=== PATIENT | female | born 1980 | race Caucasian/White ===

== ENCOUNTER 2021-11-07 15:20 | Emergency (ER) | payer OTHER, SELFPAY | END 2021-11-07 16:56 | disposition left against medical advice (07) | LOC: ANHED 16:24 | PROVIDERS: PCP Physician Assistant | DX: Z53.21 Procedure and treatment not carried out due to patient leaving prior to being seen by health care provider (principal) | CPT/HCPCS: 99199 ==

== ENCOUNTER 2022-10-02 10:59 | Emergency (ER) | payer OTHER, SELFPAY ==
--- NOTE | ~2022-10-02 | XR_ITS ---
EXAMINATION: XR sacrum coccyx min 2V DATE: 10/02/2022 12:56 INDICATION: Sacrococcygeal pain post fall down stairs TECHNIQUE: AP, angled AP and lateral views of the sacrum and coccyx were obtained. COMPARISON: None. FINDINGS: There is a fracture across the caudal-most sacral segment with approximately 3 mm anterosup erior displacement of the distal fragment and attached coccyx. No other fractures identified. Mild bi lateral sacroiliac osteoarthritis. Bilateral hip joint spaces are normal. Phlebolith in the left ismael pelvis. IMPRESSION: 1. Mildly displaced fracture across S5. Reviewed, dictated and finalized at location A.
[2022-10-02 11:02] VITALS: BP 123/74; PULSE 95; RESP 18; TEMP 36.7; O2SAT 100
--- NOTE | 2022-10-02 13:26 | ED.GENADULT ---
HPI - General Adult General Chief complaint: Fall Stated complaint: fell on steps, tailbone pain/shoulder blade pain Time Seen by Provider: 10/02/22 11:58 History of Present Illness HPI narrative: Patient is a 42-year-old female who presents ER with pain to her buttock. She slipped on the steps and fell directly down onto her buttock. Sudden onset pain. She has been able to walk. She then felt like she was anxious and had a panic attack and became tingling in her toes and fingers. She has no numbness or tingling at this time. No functional weakness of the legs. She has no saddle anesthesia. She is ambulatory without difficulty. She reports her pain has significantly improved since being at the ER. Most of her pain is over the folds of the buttock. She has not identified any swelling or bleeding. Related Data Home Medications Medication Instructions Recorded Confirmed acetaminophen 325 mg capsule 325 mg PO Q6H PRN 03/04/21 (Tylenol) Allergies Allergy/AdvReac Type Severity Reaction Status Date / Time adhesive Allergy Unknown unknown Verified 10/02/22 12:29 Review of Systems Review of Systems: All systems reviewed & are unremarkable except as noted in HPI and below Musculoskeletal: Musculoskeletal: Denies back pain, Denies arthralgias and Denies joint swelling Comments: Tailbone pain Integumentary/Breasts: Skin/Breast: Denies erythema and Denies rash Neurologic: Denies focal weakness and Denies numbness PMFSH Past Medical History Medical History (Updated 10/02/22 @ 13:33 by Kishore Schmidt MD) Arthritis Family History Family History (Updated 03/04/21 @ 09:39 by Margaux Martinez) Grandparent Diabetes mellitus Mother Family history of hypercholesterolemia Carcinoma of colon Hypertension Depression Anxiety Heart disease Father Hypertension Cerebrovascular accident Sibling Alcoholism Hypertension Depression Anxiety Heart disease Other Depression Anxiety Social History Social History Smoking status: Current every day smoker Alcohol intake: never Substance use type: marijuana Exam Narrative: GENERAL: Well-appearing, well-nourished, and in no acute distress. HEAD: Normocephalic, atraumatic. CHEST: Clear to auscultation. No respiratory distress. HEART: Regular rate and rhythm. Normal peripheral pulses. BACK: Tender to palpation over the low sacrum in the folds of the buttock without bruising or hematoma. Otherwise unremarkable. EXTREMITIES: Normal range of motion. No edema. Ambulatory without difficulty. SKIN: Warm, dry, no rash. NEURO: Sensation intact in lower extremities. Alert and oriented x3. PSYCH: Normal mood and affect. Course Course Emergency Course: Patient resting comfortably. Informed of results. Discussed using a inflatable doughnut for comfort when sitting. Will prescribe pain medication for home. Vital Signs Vital signs: Vital Signs Temperature 98.0 F 10/02/22 11:02 Pulse Rate 95 10/02/22 11:02 Respiratory Rate 18 10/02/22 11:02 Blood Pressure 123/74 10/02/22 11:02 Pulse Oximetry 100 10/02/22 11:02 Oxygen Delivery Room Air 10/02/22 11:02 Temperature 98.0 F 10/02/22 11:02 Pulse Rate 95 10/02/22 11:02 Respiratory Rate 18 10/02/22 11:02 Blood Pressure 123/74 10/02/22 11:02 Pulse Oximetry 100 10/02/22 11:02 Oxygen Delivery Room Air 10/02/22 11:02 Medical Decision Making Vital Signs Vital Signs: Vital Signs Temperature 98.0 F 10/02/22 11:02 Pulse Rate 95 10/02/22 11:02 Respiratory Rate 18 10/02/22 11:02 Blood Pressure 123/74 10/02/22 11:02 Pulse Oximetry 100 10/02/22 11:02 Oxygen Delivery Room Air 10/02/22 11:02 Temperature 98.0 F 10/02/22 11:02 Pulse Rate 95 10/02/22 11:02 Respiratory Rate 18 10/02/22 11:02 Blood Pressure 123/74 10/02/22 11:02 Pulse Oximetry 100 10/02/22 11:02 Oxygen Delivery Room Air 10/02/22 11:02 Imagin
== END 2022-10-02 13:59 | disposition home or self-care (01) ==
PROVIDERS: Emergency Provider Emergency Medicine; PCP Physician Assistant
DX: S32.2XXA Fracture of coccyx, initial encounter for closed fracture (principal); M19.90 Unspecified osteoarthritis, unspecified site; W10.9XXA Fall (on) (from) unspecified stairs and steps, initial encounter
CPT/HCPCS: 72220; 99283

== ENCOUNTER 2023-06-05 15:29 | Emergency (ER) | payer OTHER, SELFPAY ==
[2023-06-05 15:37] VITALS: BP 118/81; PULSE 90; RESP 18; TEMP 37.3; O2SAT 98
--- NOTE | 2023-06-05 15:51 | ED.URI ---
HPI - URI/Sore Throat General Chief Complaint: Upper Respiratory Infection Stated Complaint: Sinus Time Seen by Provider: 06/05/23 15:51 Source: patient, RN notes reviewed and old records reviewed Mode of arrival: ambulatory Limitations: no limitations History of Present Illness HPI Narrative: 43-year-old female presents to the [facility] with complaints ear congestion, sinus congestion cough Has had symptoms on and off since end of April, returned last or Sunday, 4-5 days Has taken DayQuil and NyQuil Onset (ago): day(s) (4-5) Related Data Home Medications Medication Instructions Recorded Confirmed acetaminophen 325 mg capsule 325 mg PO Q6H PRN 03/04/21 (Tylenol) escitalopram oxalate 10 mg tablet mg 06/05/23 Allergies Allergy/AdvReac Type Severity Reaction Status Date / Time adhesive Allergy Unknown unknown Verified 06/05/23 15:36 Review of Systems Review of Systems: All systems reviewed & are unremarkable except as noted in HPI and below Constitutional: Constitutional: Reports no additional constitutional complaints Eyes: Eyes: Reports no additional eye complaints ENT: Reports as per HPI Cardiovascular: Cardiovascular: Reports no additional cardiovascular complaints, Denies chest pain and Denies dyspnea Respiratory: Respiratory: Reports no additional respiratory complaints, Denies chest congestion, Denies cough and Denies dyspnea Gastrointestinal: Gastrointestinal: Reports no additional gastrointestinal complaints, Denies abdominal pain, Denies nausea and Denies vomiting Musculoskeletal: Musculoskeletal: Reports no additional musculoskeletal complaints Integumentary/Breasts: Skin/Breast: Reports system reviewed and no additional complaints, except as docu Neurologic: Reports system reviewed and no additional complaints, except as documented Psychiatric: Psychiatric: Reports no additional psychiatric complaints Allergic/Immunologic: Allergic/Immunologic: Reports no additional allergic/immunologic complaints [facility] Past Medical History Medical History Arthritis Family History Family History Grandparent Diabetes mellitus Mother Family history of hypercholesterolemia Carcinoma of colon Hypertension Depression Anxiety Heart disease Father Hypertension Cerebrovascular accident Sibling Alcoholism Hypertension Depression Anxiety Heart disease Other Depression Anxiety Social History Social History Smoking status: Current every day smoker Alcohol intake: never Substance use type: marijuana Comments At the time of my signature, I reviewed and agree with the nursing past medical, surgical, social, and family history. There is no relevant family history pertinent to the patient complaint. Exam Const: General: cooperative, healthy appearing, comfortable, no acute distress, well developed, alert and well nourished Nutritional Appearance: well nourished Orientation/consciousness: patient oriented x3 Limitations: no limitations HENMT: Head: normal to inspection Ears: hearing grossly normal bilaterally, external ears normal, EAC's normal, mastoids normal, no periauricular adenopathy and TM abnormal bulging on the left and erythematous bilateral Face/Nose/Sinus: Normal external nose present, Normal nares present, Normal nasal mucous membranes and turbinates present, Nasal discharge present clear bilateral, normal facial exam and face symmetric Face and sinus: normal facial exam and face symmetric Mouth: Yes Normal oral and palatal mucosa present, Yes lip normal and Yes moist mucous membranes Throat: posterior oropharynx normal and uvula midline Eyes: General: appearance normal, both eyes and all related structures Alignment and Position: alignment normal Periorbital: periorbital findings normal Pup
== END 2023-06-05 16:15 | disposition home or self-care (01) ==
PROVIDERS: Emergency Provider Nurse Practitioner; PCP Physician Assistant
DX: H66.93 Otitis media, unspecified, bilateral (principal); J40 Bronchitis, not specified as acute or chronic; F17.200 Nicotine dependence, unspecified, uncomplicated
CPT/HCPCS: 99213; G0463

== ENCOUNTER 2025-01-10 10:12 | Emergency (ER) | payer OTHER, SELFPAY ==
--- NOTE | 2025-01-10 10:29 | ED.URI ---
HPI - URI/Sore Throat General Chief Complaint: Upper Respiratory Infection Stated Complaint: short of breath Time Seen by Provider: 01/10/25 11:20 Source: patient Mode of arrival: ambulatory Limitations: no limitations History of Present Illness HPI Narrative: Elma is a 44-year-old female patient presenting to the clinic today with complaints of possible GERD. She reports she has been belching a lot, nausea, and having midepigastric abdominal discomfort with burning sensation in her esophagus. Feels that she may be having some esophageal spasms. At times she can not catch her breath due to the discomfort. She is anxious and tearful. No history of hiatal hernia or GERD in the past. Has an appointment to see a primary care doctor on January 20. Patient appears anxious. She denies any fevers, chills, body aches. Denies any recent weight loss. No hematemesis or blood in her stool. She smokes THC. Started an old Rx of pantoprazole. Family history of colon cancer. Related Data Home Medications ?Medication ?Instructions ?Recorded ?Confirmed ?Last Taken ?Type acetaminophen 325 mg capsule 325 mg PO Q6H PRN 03/04/21 Unknown History (Tylenol) escitalopram oxalate 10 mg tablet mg 06/05/23 Unknown History Allergies Allergy/AdvReac Type Severity Reaction Status Date / Time adhesive Allergy Unknown unknown Verified 01/10/25 11:14 Review of Systems Review of Systems: Pertinent positives per HPI. Patient denies any fever, chills, rash, headache, visual changes, dizziness, cough, chest pain, palpitations, vomiting, diarrhea, constipation, abdominal pain, or any urinary issues. PMF Past Medical History Medical History Arthritis Family History Family History Grandparent Diabetes mellitus Mother Family history of hypercholesterolemia Carcinoma of colon Hypertension Depression Anxiety Heart disease Father Hypertension Cerebrovascular accident Sibling Alcoholism Hypertension Depression Anxiety Heart disease Other Depression Anxiety Social History Social History Smoking status: Current every day smoker Alcohol intake: never Substance use type: marijuana Comments At the time of my signature, I reviewed and agree with the nursing past medical, surgical, social, and family history. There is no relevant family history pertinent to the patient complaint. Exam Narrative: General: Well-developed, obese, in no apparent distress Head: Normocephalic, atraumatic Eyes: Pupils equally round and reactive to light bilaterally, EOM intact, sclera and conjunctive clear, no discharge, lids normal Ears: TMs intact and clear, ear canals clear, no drainage, grossly hearing normal. Nose: Nares patent, no discharge, no inflammation, no sinus tenderness. Mouth: Oral pharynx without lesions or masses, good dentition, MMM. Neck: Supple, trachea midline, no enlargement of anterior or posterior cervical nodes, no thyroid masses or goiter palpable. Cardio: Regular rate and rhythm, s1 and s2 normal, no murmur appreciated. Resp: Clear to auscultation bilaterally, no rhonchi, rales, wheezing or rubs Abdomen: Soft, pliable, bowel sounds present in all quadrants, mid epigastric tender to palpation, no organomegly, no CVAT tenderness. Course Course Emergency Course: Portions of this record may have been created with voice recognition software. Level of Care: Express Care Visit Vital Signs Vital signs: Vital Signs Temperature 36.4 C 01/10/25 11:16 Pulse Rate 86 01/10/25 11:16 Respiratory Rate 18 01/10/25 11:16 Blood Pressure 134/84 01/10/25 11:16 Pulse Oximetry 96 01/10/25 11:16 Oxygen Delivery Room Air 01/10/25 11:16 Temperature 36.4 C 01/10/25 11:16 Pulse Rate 86 01/10/25 11:16 Respiratory Rate 18 01/10/25 11:16 Blood Pressure 134/84 01/10/25 11:16 Pulse Oximetry 96 01/10/25 11:16 Oxygen Delivery Room Air 01/10/25 11:16 Vital signs reviewed MDM - URI/Sore Throat MDM Narrative Medical decision making narrative: At the time of visit patient is resting comfortably on the exam table. Patient appears to be nontoxic. Plan: I suspect patient has GERD. Prescription for Carafate and pantoprazole was sent to the pharmacy. Referral to GI specialist was given. Supportive measures were discussed with the patient and they voiced understanding discharge instructions and agrees to treatment plan. Return precautions reviewed Differential Diagnosis Differential diagnosis: Likely other (GERD, hiatal hernia, postnasal drip, anxiety, cholecystitis, pancreatitis, Vasquez's esophagus, H pylori) Discharge Plan Discharge Clinical Impression: GERD (gastroesophageal reflux disease) Qualifiers: Esophagitis presence: esophagitis presence not specified Qualified Code(s): K21.9 - Gastro-esophageal reflux disease without esophagitis Patient Disposition: Home Condition: Stable Instructions: Antibiotic Form, Diet for Stomach Ulcers and Gastritis (ED), GERD (Gastroesophageal Reflux Disease) (ED) Additional Instructions: Increase fluids and stay well hydrated Avoid eating spicy or fatty foods, chocolate, or drinking caffeine. Avoid foods that cause you to feel bloated. Stop smoking Lose weight/exercise Stay upright for at least 30 minutes after eating. May use tums for immediate relief Take medications only as prescribed-pantoprazole and Carafate Follow up with your PCP in 3-5 days if symptoms persist. Patient Language: Divehi Prescriptions: New pantoprazole 40 mg tablet,delayed release (DR/EC) 40 mg PO HS 28 Days Qty: 28 0RF sucralfate [Carafate] 1 gram tablet 1 g PO ACHS 30 Days Qty: 120 0RF No Action escitalopram oxalate 10 mg tablet albuterol sulfate 90 mcg/actuation HFA aerosol inhaler 2 puff inhalation QID PRN (Reason: shortness of breath or wheezing) Qty: 6.7 0RF amoxicillin-pot clavulanate 875-125 mg tablet 1 tablet PO Q12H Qty: 20 0RF (DME) Aerochamber MV Spacer See Rx Instructions .Route Qty: 1 0RF Rx Instructions: As directed prednisone 20 mg tablet See Rx Instructions .Route .COMPLEX Qty: 9 0RF Rx Instructions: Take 40 mg daily for 3 days, 20 mg daily for 3 days acetaminophen [Tylenol] 325 mg capsule 325 mg PO Q6H PRN Follow-up/Referrals: Jose Zhang MD [Physician] - 3 Days (gerd) Paradise Torres APRN [Primary Care Provider] - Time of Disposition: 11:22 Quality NIHSS Nursing Documentation ED NIHSS nursing documentation: reviewed/agree
[2025-01-10 11:16] VITALS: BP 134/84; PULSE 86; RESP 18; TEMP 36.4; O2SAT 96
== END 2025-01-10 11:35 | disposition home or self-care (01) ==
PROVIDERS: Emergency Provider Nurse Practitioner Family; PCP Nurse Practitioner Family
DX: K21.9 Gastro-esophageal reflux disease without esophagitis (principal); F17.200 Nicotine dependence, unspecified, uncomplicated; F12.90 Cannabis use, unspecified, uncomplicated; M19.90 Unspecified osteoarthritis, unspecified site
CPT/HCPCS: 99213; G0463

== ENCOUNTER 2025-02-09 00:07 | Day surgery (SDC) | payer OTHER, SELFPAY ==
[2025-02-04 13:05] VITALS: BMI 31.6
--- OUTSIDE RECORDS SUMMARY | 2025-02-09 00:10 | XMS_ITS | Continuity of Care Document ---
Author Organization [facility] Address [address] [place] [address] Phone Care Team Providers Care Acute Specialist Name Role Phone Unavailable Unavailable Unavailable Advance Directives Directive Yes / No Effective Date File Name No Information Encounters Encounter Description Practice Location Reason(s) For Visit Diagnoses Date Provider Providers Copied on Encounter [facility], [address] [facility], [place], [place], [id number], tel:[phone] [facility] No Information No Information Referring Provider: CARO BRADLEY, [address] [place] [address], [id number]. tel:[phone] Family History Family Member Type Diagnosis Age At Onset No Information Payers Payer name Insurance type Covered alliance party ID Authoriza tion(s) No Information Social History Type Description Quantity Date Captured Comments Sex Female Smoking Status No Information Chief Complaint And Reason For Visit No Information History Of Present Illness Encounter Date Complaint History Of Prese nt Illness No Information Instructions Date Instruction Additional Infor mation No Information Assessments Type Assessment Date No Information
[2025-02-09 10:23] VITALS: BP 132/84; PULSE 101; RESP 20; TEMP 36.8; O2SAT 98; BMI 30.9
[2025-02-09 10:26] LABS: BEDSIDEPREGUCG Negative (Negative)
--- NOTE | 2025-02-09 10:30 | WPDANESEPPF ---
Anes - Initial Pre Proc Eval Procedure: Operation Date: 02/09/25 11:30 Proposed Procedures p Diagnostic Colonoscopy - Jose Zhang MD Date/Time: 02/09/25 10:30 Surgeon: Jose Zhang MD Pre Op Diagnosis: Hemorrhage of anus and rectum Patient Data Age: 44 Gender: F Height: 1.65 m Weight: 84.3 kg Last Vital Signs Temp 36.8 C 02/09/25 10:23 Pulse 101 H 02/09/25 10:23 Resp 20 02/09/25 10:23 BP 132/84 02/09/25 10:23 Pulse Ox 98 02/09/25 10:23 O2 Del Method Room Air 02/09/25 10:23 Allergies Allergy/AdvReac Type Severity Reaction Status Date / Time adhesive Allergy Unknown unknown Verified 02/09/25 10:21 Home Medications ?Medication ?Instructions ?Recorded ?Confirmed ?Type inhalational spacing device #1 ea 06/05/23 01/20/25 Rx (Aerochamber MV spacer) acetaminophen 325 mg tablet 250 mg PO .PRN PRN fever or pain 01/20/25 02/04/25 History (Tylenol) sucralfate 1 gram tablet 1 g PO QID 01/20/25 01/20/25 History buspirone 5 mg tablet 5 mg PO BID #60 tabs 01/29/25 02/09/25 Rx escitalopram oxalate 10 mg tablet 10 mg PO DAILY #30 tabs 01/29/25 02/09/25 Rx (Lexapro) pantoprazole 40 mg tablet,delayed 40 mg PO HS #30 tabs 02/04/25 02/09/25 Rx release Laboratory Tests 02/09/25 10:23 POC Urine HCG, Qual Negative (Negative) Patient hx anesthesia problems: none Family hx anesthesia problems: none Results Review: All pre-operative results and documents have been reviewed as part of the pre-operative evaluation. FORMERLY [facility], [facility] Past Medical History Medical History Arthritis Family History Family History Grandparent Diabetes mellitus Mother Family history of hypercholesterolemia Carcinoma of colon Hypertension Depression Anxiety Heart disease Father Hypertension Cerebrovascular accident Sibling Alcoholism Hypertension Depression Anxiety Heart disease Sibling Anxiety Depression Grandparent Carcinoma of colon Heart disease Social History Social History (Updated 01/20/25 @ 14:49 by Shauna Hidalgo [facility]) Smoking packs per day: 1 Smoking cigarettes per day: 20.0 Years smoked: 20 Smoking pack-years: 20.00 Smoking status: Former smoker Alcohol intake: never Substance use: current Substance use type: marijuana Living arrangements: with family Spiritual care concerns: No Anes - Eval Final PreProcedure Day of Procedure 02/09/25 10:30 Patient weight: overweight Heart: regular rate and rhythm Lungs: decreased breath sounds Airway: Mallampati scale class II Neurological: alert and oriented Last oral intake: >/= 8 hours ASA classification: III Emergent: no Anesthetic plan: proceed Anesthesia type and monitoring: general GIVS and standard monitoring Results Review: All pre-operative results and documents have been reviewed as part of the pre-operative evaluation. Informed Consent: The patient's anesthetic plan and its attendant risks and benefits were discussed with the patient/family/POA. Questions were solicited and answers provided to the satisfaction of the patient/family/POA.
[2025-02-09] MEDS: LACTATED RINGERS 1,000 ML 150 ML IV CONT (10:34)
--- NOTE | 2025-02-09 11:53 | WPDHPUPDATE1 ---
History and Physical Update Update Date/Time: 02/09/25 11:53 History and Physical has been reviewed, including an updated exam of the patient. There are NO changes in the patient's condition. Risks, benefits, and alternatives have been discussed and questions answered. Patient agrees to proceed with procedure.
[2025-02-09 12:32] VITALS: BP 120/80; PULSE 72; RESP 25; O2SAT 100
--- NOTE | 2025-02-09 12:32 | S_PTH ---
PATIENT: Elma Colunga LOC: [facility]UNA Vargas#:[id number] AGE/SX: 44/F ROOM: RE02/09/[address]: Jose Zhang MD : 1980 BED: DIS: 02/09/2025 SPEC #: [id number] RECD: 02/09/25 13:54 STATUS: BLESSING REEwa #: [id number] REINIER: 02/09/25 12:[address]: Jose Zhang DEPT: [facility] Surgical RECD BY: Leora Lovell ENTERED: 02/09/25 13:55 SP TYPE: Surgical OTHR DR: Phylicia Ivan DO Tissues: A - Colon Polypectomy B - Colon Polypectomy Procedures: Hematoxylin and Eosin Stain Gross and Microscopic Level 4 MLH1 MSH2 MSH6 PMS2
[2025-02-09 12:42] VITALS: BP 105/61; PULSE 77; RESP 19; O2SAT 100
[2025-02-09 12:52] VITALS: BP 147/67; PULSE 75; RESP 23; O2SAT 100
== END 2025-02-09 13:06 | disposition home or self-care (01) ==
PROVIDERS: Anesthesiology; PCP Family Medicine; Referring Provider Nurse Practitioner; Visit Provider Internal Medicine Gastroenterology
PROC: 0DJD8ZZ Inspection of Lower Intestinal Tract, Via Natural or Artificial Opening Endoscopic (ICD-10-PCS; CPT 45378; principal; 2025-02-09 11:30)
DX: C18.4 Malignant neoplasm of transverse colon (principal); D12.2 Benign neoplasm of ascending colon; K21.9 Gastro-esophageal reflux disease without esophagitis; K64.8 Other hemorrhoids; K64.4 Residual hemorrhoidal skin tags; F41.9 Anxiety disorder, unspecified; M19.90 Unspecified osteoarthritis, unspecified site; F12.90 Cannabis use, unspecified, uncomplicated; Z79.51 Long term (current) use of inhaled steroids; Z87.891 Personal history of nicotine dependence; Z80.0 Family history of malignant neoplasm of digestive organs; Z82.49 Family history of ischemic heart disease and other diseases of the circulatory system
CPT/HCPCS: 45390; 88305; 88342; J2003; J2704; J7120

== ENCOUNTER 2025-03-30 13:16 | Outpatient (CLI) | payer OTHER, SELFPAY ==
--- NOTE | 2025-03-30 14:09 | ECG_ITS ---
Test Date: 2025-03-30 14:26:00 Measurements Intervals Sharon Rate: 76 P: 60 FL: 185 QRS: 17 QRSD: 94 T: 37 QT: 369 QTc: 415 Interpretive Statements SINUS RHYTHM POOR R-WAVE PROGRESSION ABNORMAL ECG No previous ECG available for comparison Electronically Signed On 03-31-2025 07:59:20 CDT by Shakir Russo M.D.
[2025-03-30 14:39] LABS: Hematocrit 37.3 % (37.0-47.0); Hemoglobin 12.0 g/dL (12.0-15.0); Immature Granulocyte Percent A 0.1 % (0-0.5); Lymphocytes Absolute Auto 2.13 K/mm3 (0.9-3.2); Mean Corpuscular HGB Conc 32.2 g/dl (32-36); Mean Corpuscular Hemoglobin 26.9 pg (26-34); Mean Corpuscular Volume 83.6 fl (80-100); Nucleated Red Blood Cells Absolute Auto 0.000 K/mm3 (0.0-0.012); Nucleated Red Blood Cells Perc 0.0 % (0.0-0.2); Platelet Count Result 302 k/mm3 (150-375); Red Blood Count 4.46 M/mm3 (4.2-5.4); White Blood Count 8.0 K/mm3 (4.5-10.0)
[2025-03-30 14:52] LABS: Alanine Aminotransferase 13 U/L (6-35); Albumin Level 4.2 g/dL (3.5-5.1); Alkaline Phosphatase 61 U/L (38-126); Anion Gap 7 mmol/L (4-12); Aspartate Amino Transferase 21 U/L (14-36); Bilirubin,Total 0.3 mg/dL (0.2-1.3); Blood Urea Nitrogen 8 mg/dL (7-17); Calcium 8.9 mg/dL (8.4-10.2); Carbon Dioxide 24 mmol/L (22-30); Chloride 107 mmol/L (98-107); Estimated Glomerular Filt Rate > 60; Glucose 86 mg/dL (65-110); Potassium 3.2 mmol/L (3.4-5.0); Sodium 138 mmol/L (137-145); Total Protein 7.3 g/dL (6.3-8.2)
[2025-03-30 15:27] LABS: Carcinoembryonic Antigen 1.3 ng/mL (0.0-3.0)
--- OUTSIDE RECORDS SUMMARY | 2025-03-30 15:50 | XMS_ITS | Clinical Summary ---
Author Organization [facility] Address [address] [place] [id number] Phone Care Team Providers Care Digital Forensic Analyst Name Role Phone Unavailable Primary Care Provider Unavailabl e Social History Tobacco Use Types Packs/Day Years Used Date Smoking Tobacco: Never Assessed Comments Unknown Sex and Gender Information Value Date Recorded Sex Assigned at Not on file Legal Sex Female 12:11 PM CDT Gender Identity Not on file Sexual Orientation Not on file Plan of Treatment Health Maintenance Due Date Last Done Comments DTAP/TDAP/TD VACCINES (1 - Tdap) 1999 HEPATITIS B VACCINES (1 of 3 - 19+ 3-dose series) 02/1999 HPV/Cotest (21-29) 2001 HPV VACCINES (1 - 3-dose SCDM series) 2007 CERVICAL CANCER SCREENING 2010 HPV/Cotest (30-65) 2010 PAP SMEAR 2010 BREAST CANCER SCREENING 2020 INFLUENZA VACCINE (#1) 2025 Insurance [employer] HMO
--- OUTSIDE RECORDS SUMMARY | 2025-03-30 15:50 | XMS_ITS | Clinical Summary ---
Author Organization [facility] System Address [address] [place] [id number] Care Team Providers Care Chain Builder Name Role Phone Rob Cain Primary Care Provider + Allergies No known active allergies Medications escitalopram 10 MG tabletIndicatio ns:Anxiety Take 1 tablet (10 mg total) by mouth daily. Patient is due for appt , no further refills until seen in office or for a virtual visit 7 tablet 05/21/2020 Active Active Problems Problem Noted Date Diagnosed Date Anxiety 11/17/2018 Family History Medical History Relation Comments Hypertension Father Stroke Father Cancer Maternal Grandfather Bone Diabetes Maternal Grandfather Diabetes Maternal Grandmother Cancer Mother Colon Heart Disease Mother Relation Status Comments Father Maternal Grandfather Maternal Grandmother Mother Social History Tobacco Use Types Packs/Day Years Used Date Smoking Tobacco: Former Cigarettes 1 12 0 04/01/2006 - 04/01/2018 Smokeless Tobacco: Never Alcohol Use Standard Drinks/Week Comments Yes 0 (1 standard drink = 0.6 oz pur e alcohol) AUDIT-C Answer Date Recorded Frequency of Alcohol Consumption Monthly or less 11/14/2018 Average Number of Drinks Not on file 019 Frequency of Binge Drinking Not on file 08/2018 PHQ-2 Answer Date Recorded PHQ-2 Score 1 11/14/2018 Comments Unknown Sex and Gender Information Value Date Recorded Sex Assigned at Not on file Legal Sex Female 2:38 PM CDT Gender Identity Not on file Sexual Orientation Not on file Occupation Industry Job Start Date Job End Date Not on file Not on file Not on file Not on file Last Filed Vital Signs Vital Sign Reading Time Taken Comments Blood Pressure 129/67 11/14/2018 10:24 AM CDT Pulse 89 11/14/2018 10:24 AM CDT Temperature 36.4 C (97.5 F) 11/14/2018 10:24 AM CDT Respiratory Rate 16 11/14/2018 10:24 AM CDT Oxygen Saturation 98% 11/14/2018 10:24 AM CDT Inhaled Oxygen Concentration - - Weight 85.7 kg (189 lb) 11/14/2018 10:24 AM CDT Height 165.1 cm (5' 5) 11/14/2018 10:24 AM CDT Body Mass Index 31.45 11/14/2018 10:24 AM CDT Plan of Treatment Health Maintenance Due Date Last Done Comments Cervical Cancer Screening Pa p Smear (Age 30 to 64) Every 3 Years 1980 Annual Physical 1983 Hepatitis C 1998 DTaP, Tdap and Td Vaccines ( 1 - Tdap) 1999 Hepatitis B Vaccines (1 of 3 - 19+ 3-dose series) 1999 HPV Vaccines (1 - 3-dose SCD M series) 2007 Cervical Cancer Screening Pa p with HPV Testing (Age 30 to 64) Every 5 Years 2010 Cervical Cancer Screening with HPV 2010 Mammogram Screening 03/23/2023 03/23/2021 COVID-19 Vaccine (2023-2 5 season) 2025 Meningococcal B Vaccine Aged Out No l onger eligible based on patient's age to complete this topic Meningococcal Vaccine Aged Out No mark jc eligible based on patient's age to complete this topic Pneumococcal Vaccine: Pediat rics (0 to 5 Years) and At-Risk Patients (6 to 49 Years) Aged Out No longer eligi ble based on patient's age to complete this topic RSV Immunizations Under 20 Months Aged Out No longer eligible based on patient's age to complete this topic Procedures Procedure Name Priority Date/Time Associated Diagnosis Comments MG SCREENING W DENILSON SANDRA DIGI Routine 03/23/2021 2:17 PM CDT Encounter for screening mammogram for malignant neoplasm of breast from Last 3 Months or Most Recently Relevant to Health Maintenance Results * MG SCREENING W DENILSON SANDRA DIGI (03/23/2021 2:17 PM CDT) Anatomical Region Laterality Modality Breast Bilateral Mammography 03/24/2021 8:07 AM CDT Impressions 03/24/2021 8:09 AM CDT IMPRESSION: No suspicious mammographic findings. Recommendation: 1. Follow-up Mamm in 1 year, Bilateral Assessment: ACR BI-RADS 2 - BENIGN FINDING(S) Comments: A negative or benign mammography report should not delay follow-up or biopsy of a clinically significant finding or palpable abnormality. Regions of dense breast tissue may obscure findings on mammogram. Referred By: VANE MICHEL Interpreted By: Bryan Foreman MD, 03/24/2021 8:07 AM Narrative 03/24/2021 8:09 AM CDT Examination: Screening bilateral mammogram with 3-D tomosynthesis Clinical history: No family history of breast cancer. No present breast related complaints. Comparison: None Technique: Digital screening mammography of both breasts was performed. 3-D tomosynthesis technique was also performed. This study was read with the assistance of computer-aided detection system. Tissue density: The breast tissue is heterogeneously dense, which may obscure small masses. Findings: No suspicious masses, malignant appearing calcifications, skin thickening or other abnormalities are present. No significant change from the prior exam. us Vane Michel MD MAMMO Final Result from Last 3 Months or Most Recently Relevant to Health Maintenance Insurance NA Care Teams Chain Builder Relationship Specialty Start Date End Date Rob Cain DO [address] [place] [address] PCP - General FAMILY PRACTICE 10/18/18
== END 2025-03-30 13:17 | disposition home or self-care (01) ==
LOC: ANHSURGERY 13:21
PROVIDERS: PCP Family Medicine; Visit Provider Surgery
DX: Z01.818 Encounter for other preprocedural examination (principal); C18.4 Malignant neoplasm of transverse colon; R94.31 Abnormal electrocardiogram [ECG] [EKG]
CPT/HCPCS: 36415; 80053; 82378; 85025; 86850; 86900; 86901; 93005

== ENCOUNTER 2025-04-07 13:10 | Inpatient (IN) | payer OTHER, SELFPAY ==
--- NOTE | 2025-03-30 12:51 | PC.NURSE ---
Addendum entered by Enedina Reyes RN 03/30/25 13:51: CHLORHEXIDINE CLEANSER DAY BEFORE AND MORNING OF SURGERY Original Note: Report to the Outpatient Waiting Room, entrance under the [facility]ilion located off [facility], at time __6 AM on date 04/07/25 . Planned Procedure Time: _7:30 AM .? Time changes happen often and if your time is changed the preop area will call you the afternoon before. - You and your visitor will be asked to self-screen and do not enter if you have any COVID symptoms. Please call surgeon if you need to reschedule. - A mask is optional within the hospital at this time. Patients may have clear liquids (water, carbonated beverages, clear teas, apple juice) until 3 hours prior to surgery ( 4:30 AM) with a maximum of 20 ounces. - No food from midnight until time of surgery and no smoking, or chewing tobacco (or any form of nicotine). No chewing gum, candy or mints. Take only the following medications with a SIP of water on the morning of surgery: _buspirone DO NOT STOP ANY OF YOUR OTHER PRESCRIPTION MEDICATIONS PRIOR TO SURGERY EXCEPT THE FOLLOWING Hold all vitamins and supplements for 3 days per anesthesiologist. Medications to discontinue per physician NONE BOWEL PREP PER DR ALFRED ENSURE BUNDLE PACK PER DR ALFRED Please no make-up, nail ecuadorean, hairspray, perfume, deodorant, or body powder the day of surgery.? No jewelry (including any body piercings) or valuables the day of surgery, leave them at home.? Please take a shower or bath the night before, or the morning of, surgery with an antibacterial soap.? Wear comfortable, loose fitting clothing.? Children are encouraged to wear pajamas. - Jewelry must be removed prior to entering the operating room.? Rings and piercings that are not removed may be cut off. - The hospital will not accept responsibility for valuables.? - Please leave all valuables, including medications, at home the day of surgery. If you are going home after surgery, a licensed hole digger truck driver must drive you home.? - NO public transportation without another adult if you receive anesthesia. - We recommend that an adult stay with you for 24 hours following discharge. - We also recommend that you do not drive, make important decision, drink alcoholic beverages, or take any drugs that were not prescribed by your health care provider for at least 24 hours after your discharge time. For Pediatric surgeries, we recommend two adults accompany the child home. Follow any additional instructions given to you from your surgeon. VERBAL AND WRITTEN instructions given to _PATIENT and asked if any additional questions and then verbalized understanding. Patient advised to call surgeon office or pre surgery nurse liaison [phone] if any additional questions.
[2025-03-30 13:24] VITALS: BMI 31.8
[2025-03-30 14:15] VITALS: BP 128/76; PULSE 74; RESP 18; TEMP 36.3; O2SAT 99
[2025-04-07] VITALS (17 sets, daily range): BP systolic 116–153; BP diastolic 67–91; PULSE 67–118; RESP 12–20; TEMP 36.1–36.7; O2SAT 93–100
--- NOTE | ~2025-04-07 | XR_ITS ---
XR abdomen/kub 1V 04/09/2025 13:09 Indication: Postop nausea and vomiting Procedure: KUB Comparison: No prior studies for comparison. Findings: Moderately dilated small bowel and colon are present throughout the abdomen, most likely ileus postoperatively. Recommend follow-up to assess for resolution. Impression: 1: Probable postoperative adynamic ileus. Recommend follow-up x-ray to assess for resolution. Reviewed, dictated and finalized at location O. Impression: 1: Probable postoperative adynamic ileus. Recommend follow-up x-ray to assess f or resolution.
--- OUTSIDE RECORDS SUMMARY | 2025-04-07 00:47 | XMS_ITS | Clinical Summary ---
Author Organization [facility] Address [address] [place] [id number] Phone Care Team Providers Care Char Puller Name Role Phone Unavailable Primary Care Provider [...]
--- OUTSIDE RECORDS SUMMARY | 2025-04-07 00:47 | XMS_ITS | Clinical Summary ---
Author Organization [facility] System Address [address] [place] [id number] Care Team Providers Care Pyridine Recovery Operator Name Role Phone Rob Cain Primary Care [...] to Health Maintenance Insurance NA Care Teams Pyridine Recovery Operator Relationship Specialty Start Date End Date Rob Cain DO [address] [place] [address] PCP - General FAMILY PRACTICE 10/18/18
[2025-04-07] MEDS: LACTATED RINGERS 1,000 ML 30 ML IV CONT ×2 (07:05→10:47)
[2025-04-07] MEDS: ACETAMINOPHEN 500 MG TABLET 1000 MG PO ×3 (07:08→16:36)
[2025-04-07] MEDS: KETOROLAC 15 MG/ML VIAL (*BKC) IV PUSH (07:10)
--- NOTE | 2025-04-07 07:16 | P.HP_ITS ---
H&P: HPI History of Present Illness Date/Time: 04/07/25 07:16 Chief Complaint: Transverse colon adenocarcinoma Narrative: 44 yo woman presents for colon resection. She has a malignant polyp in her transverse colon. She denies any changes since last seen in office. Review of Systems Review of Systems: All systems reviewed & are unremarkable except as noted in HPI and below Constitutional: Constitutional: Denies chills, Denies fever(s), Denies headache(s) and Denies weight loss Eyes: Eyes: Denies change in vision ENT: Denies dizziness, Denies headache(s), Denies neck mass and Denies throat swelling Cardiovascular: Cardiovascular: Denies chest pain, Denies lightheadedness and Denies dyspnea Respiratory: Respiratory: Denies cough, Denies dyspnea and Denies wheezing Gastrointestinal: Gastrointestinal: Denies abdominal pain, Denies change in bowel habits, Denies nausea and Denies vomiting Genitourinary: Genitourinary: Denies hematuria and Denies dysuria Musculoskeletal: Musculoskeletal: Reports as per HPI Integumentary/Breasts: Skin/Breast: Reports as per HPI Neurologic: Denies dizziness and Denies headache(s) Allergic/Immunologic: Allergic/Immunologic: Denies throat swelling and Denies wheezing PMFSH Past Medical History Medical History (Updated 03/02/25 @ 13:46 by Sirisha Ji) COPD (chronic obstructive pulmonary disease) Asthma Anxiety Colon cancer Arthritis Family History Family History Grandparent Diabetes mellitus Mother Family history of hypercholesterolemia Carcinoma of colon Hypertension Depression Anxiety Heart disease Father Hypertension Cerebrovascular accident Sibling Alcoholism Hypertension Depression Anxiety Heart disease Sibling Anxiety Depression Grandparent Carcinoma of colon Heart disease Social History Social History (Updated 03/02/25 @ 13:12 by Anaid Monsalve [employer]IST[employer]) Smoking packs per day: 1 Smoking cigarettes per day: 20.0 Years smoked: 20 Smoking pack-years: 20.00 Smoking status: Former smoker Alcohol intake: never Substance use: current Substance use type: marijuana Do You Feel Safe in your Home?: Yes Lack of Transportation: No Lack of Food: Sometimes True Current Housing: I Have Housing Concerned About Future Housing: No Difficulty Paying Gas/Electric Bills: No Difficulty Paying for Meds: No Currently Unemployed: No Education: Bachelor's Degree Difficulty w/ Childcare or Family Care: No Living arrangements: with family Spiritual care concerns: No Meds Home Medications and Allergies Home Medications ?Medication ?Instructions ?Recorded ?Confirmed ?Type acetaminophen 325 mg tablet 325 mg PO .PRN PRN fever o r pain 01/20/25 03/30/25 History (Tylenol) escitalopram oxalate 10 mg tablet 10 mg PO DAILY #30 t abs 01/29/25 03/30/25 Rx (Lexapro) pantoprazole 40 mg tablet,delayed 40 mg PO HS #30 tabs 02/04/25 03/30/25 Rx release buspirone 5 mg tablet 5 mg PO BID #180 tabs 03/30/25 Rx ciprofloxacin HCl 500 mg tablet 500 mg PO .COMPLEX #1 tablet 04/06/25 Rx metronidazole 500 mg tablet 500 mg PO .COMPLEX #3 tabs 04/06/25 Rx Allergies Allergy/AdvReac Type Severity Reaction Status Date / Time adhesive Allergy Unknown redness/itc Verified 03/30/25 13:25 izzy Exam Const: General: no acute distress and alert Orientation/consciousness: patient oriented x3 HENMT: Head: normocephalic and atraumatic Ears: hearing grossly normal bilaterally Face/Nose/Sinus: Normal nares present Mouth: Yes Normal oral and palatal mucosa present Eyes: Periorbital: periorbital findings normal Sclera: sclerae normal EOM: EOMs intact bilaterally Neck: Neck: normal visual inspection, no lymphadenopathy and trachea midline Chest: Chest palpation & inspection: normal inspection of the chest Resp: Effort & Inspection: normal respiratory effort Auscultation: clear to auscultation bilaterally Cardio: Jugular venous distension: no JVD Rate: regular rate Rhythm: regular rhythm Heart sounds: S1 normal heart sound present and S2 normal heart sound present Peripheral pulses: Peripheral pulses 2+ throughout GI: Inspection: normal to inspection GI Palp: Yes Soft to palpation, No Tenderness to palpation present (GI), No Guarding due to palpation present (GI) and No Rebound tenderness present Percussion: Yes normal to percussion Auscultation: normal bowel sounds : General: Yes no CVA tenderness Back/Spine/Pelvis: Back: no CVA tenderness Neuro: General: patient oriented x3, no focal motor deficits and CN's II-XI intact bilaterally Cognition (Neuro): normal cognition Speech: normal speech Motor exam (neuro): 5/5 motor strength present throughout Extrem: General: capillary refill normal and no clubbing, cyanosis or edema Assessment and Plan Assessment and plan (1) Malignant neoplasm of transverse colon: Code(s): C18.4 - Malignant neoplasm of transverse colon Status: Acute Assessment and Plan: I have recommended laparoscopic transverse colectomy, da Henny assisted. I have discussed the procedure, risks, benefits, and alternatives with the patient. All questions answered. No changes since last seen in office.
--- NOTE | 2025-04-07 07:18 | WPDHPUPDATE1 ---
History and Physical Update Update Date/Time: 04/07/25 07:18 History and Physical has been reviewed, including an updated exam of the patient. There are NO changes in the patient's condition. Risks, benefits, and alternatives have been discussed and questions answered. Patient agrees to proceed with procedure.
--- NOTE | 2025-04-07 07:26 | P.PNAN_ITS ---
Anes - Initial Pre Proc Eval Procedure: Operation Date: 04/07/25 07:30 Proposed Procedures p Laparoscopic Transverse Colectomy, Davinci Assisted - Jameel Becker DO Date/Time: 04/07/25 07:26 Surgeon: Jameel Becker DO Pre Op Diagnosis: transverse colon cancer Patient Data Age: 44 Gender: F Height: 1.65 m Weight: 86.9 kg Last Vital Signs Temp 97.3 F L 03/30/25 14:15 Pulse 74 03/30/25 14:15 Resp 18 03/30/25 14:15 BP 128/76 03/30/25 14:15 Pulse Ox 99 03/30/25 14:15 O2 Del Method Room Air 03/30/25 14:15 Allergies Allergy/AdvReac Type Severity Reaction Status Date / Time adhesive Allergy Unknown redness/itc Verified 03/30/25 13:25 izzy Home Medications ?Medication ?Instructions ?Recorded ?Confirmed ?Type acetaminophen 325 mg tablet 325 mg PO .PRN PRN fever o r pain 01/20/25 03/30/25 History (Tylenol) escitalopram oxalate 10 mg tablet 10 mg PO DAILY #30 t abs 01/29/25 03/30/25 Rx (Lexapro) pantoprazole 40 mg tablet,delayed 40 mg PO HS #30 tabs 02/04/25 03/30/25 Rx release buspirone 5 mg tablet 5 mg PO BID #180 tabs 03/30/25 Rx ciprofloxacin HCl 500 mg tablet 500 mg PO .COMPLEX #1 tablet 04/06/25 Rx metronidazole 500 mg tablet 500 mg PO .COMPLEX #3 tabs 04/06/25 Rx Patient hx anesthesia problems: none Family hx anesthesia problems: none Results Review: All pre-operative results and documents have been reviewed as part of the pre- operative evaluation. [facility] Past Medical History Medical History (Updated 03/02/25 @ 13:46 by Sirisha Ji) COPD (chronic obstructive pulmonary disease) Asthma Anxiety Colon cancer Arthritis Family History Family History Grandparent Diabetes mellitus Mother Family history of hypercholesterolemia Carcinoma of colon Hypertension Depression Anxiety Heart disease Father Hypertension Cerebrovascular accident Sibling Alcoholism Hypertension Depression Anxiety Heart disease Sibling Anxiety Depression Grandparent Carcinoma of colon Heart disease Social History Social History (Updated 03/02/25 @ 13:12 by Anaid Monsalve CMA) Smoking packs per day: 1 Smoking cigarettes per day: 20.0 Years smoked: 20 Smoking pack-years: 20.00 Smoking status: Former smoker Alcohol intake: never Substance use: current Substance use type: marijuana Do You Feel Safe in your Home?: Yes Lack of Transportation: No Lack of Food: Sometimes True Current Housing: I Have Housing Concerned About Future Housing: No Difficulty Paying Gas/Electric Bills: No Difficulty Paying for Meds: No Currently Unemployed: No Education: Bachelor's Degree Difficulty w/ Childcare or Family Care: No Living arrangements: with family Spiritual care concerns: No Anes - Eval Final PreProcedure Day of Procedure 04/07/25 07:26 Patient weight: obese Heart: regular rate and rhythm Lungs: clear to auscultation Airway: Mallampati scale class II Neurological: alert and oriented Last oral intake: >/= 8 hours ASA classification: III Emergent: no Anesthetic plan: proceed Anesthesia type and monitoring: general ETT and standard monitoring Results Review: All pre-operative results and documents have been reviewed as part of the pre- operative evaluation. Informed Consent: The patient's anesthetic plan and its attendant risks and benefits were discussed with the patient/family/POA. Questions were solicited and answers provided to the satisfaction of the patient/family/POA.
[2025-04-07] MEDS: metroNIDAZOLE 500 MG/ISO 100ML 500 MG/100 ML BAG 100 MG IVPB (07:32)
[2025-04-07] MEDS: ceFAZolin 2 GM in SODIUM CHLORIDE 0.9% IV 50 ML 100 ML IVPB (07:32)
[2025-04-07] MEDS: BUPIVACAINE/EPINEPHRINE 0.5% 30 ML VIAL 60 ML INFILTRATE (08:01)
[2025-04-07 09:05] LABS: BEDSIDEPREGUCG Negative (Negative)
--- NOTE | 2025-04-07 10:19 | S_PTH ---
PATIENT: Elma Colunga LOC: [id number] U#:[id number] AGE/SX: 44/F ROOM: 329 RE04/07/[address]: Jameel Becker DO : 1980 BED: 01 DIS: 04/12/2025 SPEC #: [id number] RECD: 04/07/25 10:40 STATUS: BLESSING REQ #: [id number] REINIER: 04/07/25 10:[address]: Jameel Becker DEPT: [facility] Surgical RECD BY: Regina Medina ENTERED: 04/07/25 10:40 SP TYPE: Surgical OTHR DR: Phylicia Ivan DO Tissues: A - Colon Segment Tumor Procedures: Hematoxylin and Eosin Stain Gross and Microscopic Level 6
--- NOTE | 2025-04-07 10:50 | W.PM.PROC2 ---
Procedure Note - Detailed Date of Procedure 04/07/25 Pre-op Diagnosis transverse colon cancer Post-op Diagnosis Same (Transverse colon cancer near splenic flexure) Procedure Performed 1. Laparoscopic left hemicolectomy with anastomosis, da Henny assisted 2. Laparoscopic mobilization of splenic flexure, da Henny assisted Surgeon Jameel Becker DO Anesthesia General and Local (0.5% bupivacaine with epinephrine) Indications This is a 44-year-old woman who presented with a recent finding of transverse colon adenocarcinoma. She had undergone screening colonoscopy and was found to have a very large polyp in the transverse colon. This was removed and tattooed, but the pathology showed evidence of a 4 mm focus of adenocarcinoma. Discussions have been made with the patient about treatment options and decision was made to proceed with robotic assisted laparoscopic transverse colectomy. Findings Upon inspecting the abdomen laparoscopically, the tattooed region was identified in the distal transverse colon near the splenic flexure. A robotic assisted laparoscopic left hemicolectomy and mobilization of splenic flexure was performed. An end-to-end sewn anastomosis was performed. The specimen was marked with a suture on the distal staple line. No other intra-abdominal abnormalities were noted. Description of Procedure Procedure as well as risks, benefits, and alternatives were discussed with the patient. Written consent was obtained and placed in chart prior to procedure. Patient was brought back to surgical suite. She was placed supine on operating table. Time-out was done to confirm patient and procedure. She was then intubated by the anesthesia department. Her abdomen was then prepped and draped in sterile fashion using chlorhexidine prep. The bed was slightly flexed at the hip. 0.5% bupivacaine with epinephrine was infiltrated locally at each of the locations for the port placements. A 5 mm incision was made in the left subcostal region and a 5 mm Optiview trocar was advanced through the abdominal layers under direct visualization. Once inside the peritoneal cavity, carbon dioxide insufflation was utilized for pneumoperitoneum. The camera was inserted in the abdomen was inspected. The area of tattoo was identified in the left upper quadrant near the splenic flexure on the distal transverse colon. No other intra-abdominal abnormalities were noted. The patient was placed in slight reverse Trendelenburg position and rotated about 10? to the right. An 8 mm incision was made in the left lower quadrant and an 8 mm robotic trocar was placed under direct visualization. A 12 mm incision was made in the infraumbilical midline and a 12 mm trocar was inserted under direct visualization. Another 8 mm incision was made in the right lower quadrant and an 8 mm trocar was inserted under direct visualization. One final 8 mm incision was made in the right lateral abdomen and an 8 mm trocar was inserted under direct visualization. The robotic arms were brought up to the patient's bedside and secured to each of the ports. The robotic camera and instruments were then inserted. I then moved over to the robotic console and took control of the camera and instruments. The abdomen was carefully inspected and then I a lifted the omentum cephalad over the transverse colon. I identified the area of tattoo and then identified an area about 5 cm proximal to the more proximal tattoo region. I carefully dissected the omentum off of the transverse colon at this location using scissors with electrocautery. I continued this dissection until I entered into the lesser sac. The omental attachments to the transverse colon heading out towards the splenic flexure were then carefully taken down using the vessel sealer. I then retracted the descending colon medially and took down the lateral peritoneal attachments using scissors with electrocautery. This was extended proximally up to the splenic flexure. The splenic flexure attachments were then carefully taken down using the vessel sealer until the splenic flexure was fully mobilized at of the left upper quadrant. I appeared to have adequate mobilization of the distal transverse colon and proximal descending colon to perform a resection and anastomosis without tension. A window was then made in the mesocolon of the transverse colon about 5 cm proximal to the tattoo and a sure form 60 mm blue load stapler was advanced across the transverse colon at this point and clamped and fired. I then created another window in the mesocolon along the descending colon and advanced a sure form blue load stapler across the colon at this point in clamped and fired. The mesocolon was then taken down using the vessel sealer. I performed a high ligation of the left branch of the middle colic artery and the left colic artery. Once the mesocolon attachments were then completely taken down this then freed up the specimen completely and it was then placed over the stomach to be removed at the end of the procedure. The 2 ends of the staple line appeared to come together in an end-to-end fashion without any tension. Indocyanine green was then infused to assess adequate perfusion to each staple line. The 2 staple lines were then brought together and sutured together using a 3 0 V lock running absorbable suture. Colotomy was were then made on the anterior surface of each end of the colon about 2 cm proximal and distal to the staple lines. This was done using scissors with electrocautery and the vessel sealer. I then began performing a sewn anastomosis using 3 0 V lock running absorbable suture starting at the posterior middle portion of the anastomosis. Two sutures were started at this location and 1 suture was run inferiorly and the other suture was run superiorly. The anterior surface of the anastomosis was then converted to a Giulia running suture. The 2 sutures were met in the middle and then tied together. A 2nd layer along the anterior side was then performed using 3 0 V lock running imbricating suture. The anastomosis was inspected and appeared healthy and viable. One final inspection was made around the abdominal cavity and no other abdominal abnormalities were noted. A laparoscopic grasper was then placed at the staple line of the specimen to be removed. The robotic instruments and camera were then removed and the robotic arms were disengaged from the ports. The ports were then removed under direct visualization and the camera was removed. The pneumoperitoneum was released. The 12 mm port site in the infraumbilical midline was extended to about 3 cm transversely using a 15 blade scalpel. Electrocautery was then used for dissection through the subcutaneous tissue down to the fascia. The anterior rectus sheath was then incised transversely using electrocautery. The fascia was carefully lifted off of the rectus muscle cephalad and caudad. The peritoneum was then entered through the previous port site and this was extended slightly larger using electrocautery. The small Andrae wound protector was then placed and the specimen was then delivered through this extraction site. The wound protector was then removed after carefully inspecting the abdomen through the small incision. The peritoneum was then closed using a 0 Vicryl [id number] suture. The rectus muscle was then also reapproximated using an 0 Vicryl simple interrupted suture. The anterior fascia was then reapproximated using 0 PDS running absorbable suture. 0.5% bupivacaine with epinephrine was infiltrated locally at the extraction site. The skin of the incisions was then approximated using 4-0 Monocryl running subcuticular suture. Exofin glue was then applied on top. The patient was then awakened from anesthesia, extubated, and transferred to recovery. Estimated Blood Loss 10 Pathology Yes (Left hemicolectomy, sutured end distal) Complications No immediate complications Condition Stable Disposition Floor [facility] Billing Surgery - Charge Forward: Surgery Billing
--- NOTE | 2025-04-07 11:41 | SUR.PHASEI ---
1135: Patient meets PACU discharge criteria, unit bed unavailable at this time. Patient placed in extended recovery status.
[2025-04-07] MEDS: fentaNYL CITRATE INJ (*CRX) 100 MCG/2 ML VIAL 25 MCG IV PUSH ×2 (12:53→13:02)
--- NOTE | 2025-04-07 13:18 | ADMGEN ---
This patient, Elma Gann, was admitted to [facility] Surg Room 329-01. Patient/family oriented to hospital policies and general routines including ID bracelet, bed and alarms, visiting hours, pain management, procedures, bathroom and other care routines, personal items, smoking policy, room service/diet, and visiting hours. Information on how to activate the Rapid Response Team has been discussed. Patient/Family are encouraged to report perceived risks to care and to ask questions if they do not understand what they are told or what they should do.
[2025-04-07] MEDS: LACTATED RINGERS 1,000 ML 100 ML IV CONT (14:16)
[2025-04-07] MEDS: oxyCODONE HCL (*CRX) 5 MG TAB IR PO (16:20)
[2025-04-07] MEDS: PROMETHAZINE HCL 25 MG/ML AMPUL 12.5 MG IV PUSH (16:35)
[2025-04-07] MEDS: MORPHINE SULFATE (*CRX) 4 MG/ML INJ 2 MG IV PUSH (17:44)
[2025-04-07] MEDS: PANTOPRAZOLE 40 MG TABLET PO (21:34)
[2025-04-07] MEDS: MORPHINE SULFATE (*CRX) 4 MG/ML INJ IV PUSH (22:44)
[2025-04-08 00:41] VITALS: BP 130/70; PULSE 81; RESP 18; TEMP 36.7; O2SAT 96
[2025-04-08] MEDS: LACTATED RINGERS 1,000 ML 100 ML IV CONT ×2 (00:45→18:53)
[2025-04-08] MEDS: MORPHINE SULFATE (*CRX) 4 MG/ML INJ IV PUSH ×2 (03:07→08:05)
[2025-04-08 04:52] VITALS: BP 134/70; PULSE 80; RESP 18; TEMP 37; O2SAT 100
[2025-04-08 06:48] LABS: Hematocrit 35.5 % (37.0-47.0); Hemoglobin 11.0 g/dL (12.0-15.0); Mean Corpuscular HGB Conc 31.0 g/dl (32-36); Mean Corpuscular Hemoglobin 26.6 pg (26-34); Mean Corpuscular Volume 85.7 fl (80-100); Platelet Count Result 304 k/mm3 (150-375); Red Blood Count 4.14 M/mm3 (4.2-5.4); White Blood Count 14.5 K/mm3 (4.5-10.0)
[2025-04-08 07:11] LABS: Anion Gap 12 mmol/L (4-12); Blood Urea Nitrogen 8 mg/dL (7-17); Calcium 8.6 mg/dL (8.4-10.2); Carbon Dioxide 23 mmol/L (22-30); Chloride 103 mmol/L (98-107); Estimated CRCL calculation 87 ml/min; Estimated Glomerular Filt Rate > 60; Glucose 91 mg/dL (65-110); Potassium 2.9 mmol/L (3.4-5.0); Sodium 138 mmol/L (137-145)
[2025-04-08 08:00] VITALS: PULSE 80; RESP 18; O2SAT 100
[2025-04-08] MEDS: PROMETHAZINE HCL 25 MG/ML AMPUL 12.5 MG IV PUSH ×3 (08:06→20:43)
[2025-04-08] MEDS: POTASSIUM CHLORIDE INJ 40 MEQ in SODIUM CHLORIDE 0.9% IV 500 ML 130 MEQ IVPB (09:23)
[2025-04-08] MEDS: ENOXAPARIN 40 MG/0.4 ML SYRINGE SUB-Q (09:23)
[2025-04-08] MEDS: ESCITALOPRAM OXALATE 10 MG TABLET PO (09:23)
[2025-04-08 10:55] VITALS: BP 154/77; PULSE 75; RESP 18; TEMP 36.7; O2SAT 98
[2025-04-08] MEDS: ACETAMINOPHEN 500 MG TABLET 1000 MG PO (12:02)
--- NOTE | 2025-04-08 13:10 | P.PNGS_ITS ---
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 Patient having nausea and vomiting. * Will switch her oxycodone to hydrocodone in case this is the cause. Will also add Zofran PRN and make her NPO with IV fluids for now * Potassium low and being replaced with IV KCL. Repeat labs ordered for the am. * Pathology pending. Plan I have discussed the patient's case and plan of care with Dr. Becker. Subjective Subjective Date/Time Seen: 04/08/25 13:10 Patient reports: no flatus, no bowel movement, nausea and vomiting Interval history: Patient reports nausea and vomiting through the night. She has vomited a few times earlier this morning. She is having some relief with Phenergan but still feeling very nauseous. She had some issues with nausea after taking oxycodone yesterday on an empty stomach. She ahs not received anymore oxycodone since then and instead has been given Morphine. She reports an increase in diffuse abdominal pain after vomiting, but when she calms down she is mostly only having pain at the larger incision at the mid lower abdomen. She has only voided once since surgery at some point last night. Review of Systems Review of Systems: All systems reviewed & are unremarkable except as noted in HPI and below Exam Const: General: uncomfortable Orientation/consciousness: patient oriented x3 GI: Inspection: non-distended and incision (dry and glue intact) GI Palp: Yes Soft to palpation, Yes Tenderness to palpation present (GI) (tenderness at incisions), No Guarding due to palpation present (GI) and No Rebound tenderness present Auscultation: Hypoactive bowel sounds present Objective Data Vital Signs Vital Signs: Vital Signs - 24 hr 04/07/25 13:17 04/07/25 13:25 04/07/25 13:40 Temperature 97.4 F L 97.3 F L Pulse Rate 75 67 Respiratory Rate 14 14 Blood Pressure 127/74 127/74 Pulse Oximetry 98 96 Oxygen Delivery Room Air 04/07/25 14:10 04/07/25 15:10 04/07/25 18:49 Temperature 97.5 F L 97.1 F L 97.5 F L Pulse Rate 68 72 74 Respiratory Rate 12 16 16 Blood Pressure 122/75 116/67 127/70 Pulse Oximetry 98 98 97 Oxygen Delivery 04/07/25 20:00 04/07/25 21:16 04/08/25 00:41 Temperature 97.4 F L 98.0 F Pulse Rate 74 72 81 Respiratory Rate 16 18 18 Blood Pressure 121/68 130/70 Pulse Oximetry 97 98 96 Oxygen Delivery Room Air 04/08/25 04:52 04/08/25 08:00 Temperature 98.6 F Pulse Rate 80 80 Respiratory Rate 18 18 Blood Pressure 134/70 Pulse Oximetry 100 100 Oxygen Delivery Room Air Intake/Output Intake/Output: Intake & Output 04/05/25 04/06/25 04/07/25 04/08/25 23:59 23:59 23:59 23:59 Intake Total 700 1480 Balance 700 1480 Meds/Results Medications: Active Medications Generic Name Dose Route Start Last Admin Trade Name Freq PRN Reason Stop Dose Admin Acetaminophen 1,000 mg 04/07/25 13:10 04/08/25 12:02 Acetaminophen 500 Mg Tablet PO 1,000 mg Q6HR JENN Administration Buspirone HCl 5 mg 04/07/25 17:00 04/08/25 09:23 Buspirone Hcl 5 Mg Tablet PO 5 mg BID JENN Administration Enoxaparin Sodium 40 mg 04/08/25 09:00 04/08/25 09:23 Enoxaparin 40 Mg/0.4 Ml Syringe SUB-Q 40 mg DAILY JENN Administration Escitalopram Oxalate 10 mg 04/08/25 09:00 04/08/25 09:23 Escitalopram Oxalate 10 Mg Tablet PO 10 mg DAILY JENN Administration Lactated Ringer's 1,000 mls @ 100 mls/hr 04/07/25 13:10 04/08/25 09:23 Lr - Lactated Ringers Iv IV CONT Not Given .Q10H JENN Morphine Sulfate 2 mg 04/07/25 13:18 04/07/25 17:44 Morphine Sulfate (*Crx) 4 Mg/Ml Inj IV PUSH 2 mg Q2H PRN Administration Breakthrough Pain Rated 4-6 or NPO Morphine Sulfate 4 mg 04/07/25 13:10 04/08/25 08:05 Morphine Sulfate (*Crx) 4 Mg/Ml Inj IV PUSH 4 mg Q2H PRN Administration Breakthrough Pain Rated 7-10 or NPO Naloxone HCl 0.1 mg 04/07/25 13:10 Naloxone Hcl 0.4 Mg/Ml Vial IV PUSH Q2M PRN Opiate Reversal Ondansetron HCl 4 mg 04/08/25 13:08 Ondansetron Inj 4 Mg/2 Ml Vial IV PUSH Q6H PRN Nausea And Vomiting Oxycodone HCl 2.5 mg 04/07/25 13:10 Oxycodone Hcl (*Crx) 2.5 Mg Tab Ir PO Q4H PRN Pain Rated 4-6 Oxycodone HCl 5 mg 04/07/25 13:10 04/07/25 16:20 Oxycodone Hcl (*Crx) 5 Mg Tab Ir PO 5 mg Q4H PRN Administration Pain Rated 7-10 Pantoprazole Sodium 40 mg 04/07/25 21:00 04/07/25 21:34 Pantoprazole 40 Mg Tablet PO 40 mg HS JENN Administration Promethazine HCl 12.5 mg 04/07/25 13:10 04/08/25 12:02 Promethazine Hcl 25 Mg/Ml Ampul IV PUSH 12.5 mg Q4H PRN Administration Nausea And Vomiting Labs Labs: Laboratory Results - last 24 hr 04/07/25 04/08/25 17:37 05:46 WBC 14.5 H RBC 4.14 L Hgb 11.0 L Hct 35.5 L MCV 85.7 MCH 26.6 MCHC 31.0 L RDW 15.3 H Plt Count 304 MPV 11.1 H Sodium 138 Potassium 2.9 L Chloride 103 Carbon Dioxide 23 Anion Gap 12 BUN 8 Creatinine 0.79 Estim Creat Clear Calc 87 Estimated GFR > 60 Glucose 91 POC Capillary Glucose 108 H Calcium 8.6
[2025-04-08] MEDS: FAMOTIDINE 20 MG/2 ML VIAL IV PUSH (15:37)
[2025-04-08] MEDS: SCOPOLAMINE 1 MG PATCH 1 PATCH TRANSDERM (15:37)
[2025-04-08] MEDS: ONDANSETRON INJ 4 MG/2 ML VIAL IV PUSH (16:46)
[2025-04-08] MEDS: PANTOPRAZOLE 40 MG TABLET PO (20:28)
[2025-04-08 21:31] VITALS: BP 161/76; PULSE 91; RESP 18; TEMP 36.8; O2SAT 100
[2025-04-09] MEDS: LACTATED RINGERS 1,000 ML 100 ML IV CONT ×3 (03:03→23:07)
[2025-04-09] MEDS: ONDANSETRON INJ 4 MG/2 ML VIAL IV PUSH ×4 (03:21→20:40)
[2025-04-09 06:00] VITALS: BP 145/91; PULSE 75; RESP 16; TEMP 36.6; O2SAT 98
[2025-04-09 06:47] LABS: Hematocrit 32.6 % (37.0-47.0); Hemoglobin 10.0 g/dL (12.0-15.0); Mean Corpuscular HGB Conc 30.7 g/dl (32-36); Mean Corpuscular Hemoglobin 26.6 pg (26-34); Mean Corpuscular Volume 86.7 fl (80-100); Platelet Count Result 266 k/mm3 (150-375); Red Blood Count 3.76 M/mm3 (4.2-5.4); White Blood Count 10.0 K/mm3 (4.5-10.0)
[2025-04-09 07:10] LABS: Anion Gap 5 mmol/L (4-12); Blood Urea Nitrogen 8 mg/dL (7-17); Calcium 8.2 mg/dL (8.4-10.2); Carbon Dioxide 23 mmol/L (22-30); Chloride 106 mmol/L (98-107); Estimated CRCL calculation 105 ml/min; Estimated Glomerular Filt Rate > 60; Glucose 83 mg/dL (65-110); Potassium 3.5 mmol/L (3.4-5.0); Sodium 134 mmol/L (137-145)
[2025-04-09] MEDS: HYDROcodone/acetaminophen (*CRX) 5-325 MG TABLET 1 TAB PO (08:54)
[2025-04-09] MEDS: ENOXAPARIN 40 MG/0.4 ML SYRINGE SUB-Q (08:55)
[2025-04-09] MEDS: ESCITALOPRAM OXALATE 10 MG TABLET PO (08:55)
--- NOTE | 2025-04-09 12:27 | P.PNGS_ITS ---
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 Still had vomiting overnight, but her nausea seems to be improving. Bowel function returning. * Continue antiemetics. Will keep her on clear liquids for now. Could consider advancing later today if feeling better and tolerating clears. * Repeat labs tomorrow. Encouraged increasing activity. * Pathology showed no residual adenocarcinoma, 18 reactive lymph nodes Plan I have discussed the patient's case and plan of care with Dr. Becker. Subjective Subjective Date/Time Seen: 04/09/25 12:27 Post Op day: 2 (Laparoscopic left hemicolectomy with anastomosis, Laparoscopic mobilization of splenic flexure, da Henny assisted) Patient reports: feels better, voiding w/o difficulty (voided multiple times since yesterday and reports her urine is less dark today), flatus, bowel moveme nt and nausea Interval history: Patient is feeling better this morning. She still has some nausea but improved. She had more vomiting overnight and dry heaving, but this stopped around 3:00 am. She has been drinking water and took her pills this morning and was able to keep this down. She has been passing flatus and had a good bowel movement. No other complaints at this time. Exam Const: General: no acute distress Orientation/consciousness: patient oriented x3 GI: Inspection: non-distended, incision (dry and glue intact) and no visible herniation GI Palp: Yes Soft to palpation, Yes Tenderness to palpation present (GI) (mild tenderness near the pfannenstiel incision) and No Guarding due to palpation present (GI) Auscultation: normal bowel sounds Objective Data Vital Signs Vital Signs: Vital Signs - 24 hr 04/08/25 21:31 04/09/25 06:00 04/09/25 08:00 Temperature 98.2 F 97.8 F Pulse Rate 91 75 Respiratory Rate 18 16 Blood Pressure 161/76 H 145/91 H Pulse Oximetry 100 98 Oxygen Delivery Room Air Intake/Output Intake/Output: Intake & Output 04/06/25 04/07/25 04/08/25 04/09/25 23:59 23:59 23:59 23:59 Intake Total 700 2480 816.7 Output Total 500 Balance 700 2480 316.7 Meds/Results Medications: Active Medications Generic Name Dose Route Start Last Admin Trade Name Freq PRN Reason Stop Dose Admin Acetaminophen 650 mg 04/08/25 18:00 04/09/25 12:15 Acetaminophen 325 Mg Tablet PO Not Given Q6HR JENN Hydrocodone Bitart/Acetaminophen 1 tab 04/08/25 13:16 04/09/25 08:54 Hydrocodone/Acetaminophen (*Crx) 5-325 Mg Tablet PO 1 tab Q4H PRN Administration Pain Rated 4-6 Hydrocodone Bitart/Acetaminophen 1 tab 04/08/25 13:16 Hydrocodone/Acetaminophen (*Crx) 10-325 Mg Tablet PO Q6H PRN Pain Rated 7-10 Buspirone HCl 5 mg 04/07/25 17:00 04/09/25 08:54 Buspirone Hcl 5 Mg Tablet PO 5 mg BID JENN Administration Enoxaparin Sodium 40 mg 04/08/25 09:00 04/09/25 08:55 Enoxaparin 40 Mg/0.4 Ml Syringe SUB-Q 40 mg DAILY JENN Administration Escitalopram Oxalate 10 mg 04/08/25 09:00 04/09/25 08:55 Escitalopram Oxalate 10 Mg Tablet PO 10 mg DAILY JENN Administration Lactated Ringer's 1,000 mls @ 100 mls/hr 04/07/25 13:10 04/09/25 03:03 Lr - Lactated Ringers Iv IV CONT 100 mls/hr .Q10H JENN Administration Morphine Sulfate 2 mg 04/07/25 13:18 04/07/25 17:44 Morphine Sulfate (*Crx) 4 Mg/Ml Inj IV PUSH 2 mg Q2H PRN Administration Breakthrough Pain Rated 4-6 or NPO Morphine Sulfate 4 mg 04/07/25 13:10 04/08/25 08:05 Morphine Sulfate (*Crx) 4 Mg/Ml Inj IV PUSH 4 mg Q2H PRN Administration Breakthrough Pain Rated 7-10 or NPO Naloxone HCl 0.1 mg 04/07/25 13:10 Naloxone Hcl 0.4 Mg/Ml Vial IV PUSH Q2M PRN Opiate Reversal Ondansetron HCl 4 mg 04/08/25 13:08 04/09/25 08:55 Ondansetron Inj 4 Mg/2 Ml Vial IV PUSH 4 mg Q6H PRN Administration Nausea And Vomiting Pantoprazole Sodium 40 mg 04/07/25 21:00 04/08/25 20:28 Pantoprazole 40 Mg Tablet PO 40 mg HS JENN Administration Promethazine HCl 12.5 mg 04/07/25 13:10 04/08/25 20:43 Promethazine Hcl 25 Mg/Ml Ampul IV PUSH 12.5 mg Q4H PRN Administration Nausea And Vomiting Labs Labs: Laboratory Results - last 24 hr 04/09/25 06:14 WBC 10.0 RBC 3.76 L Hgb 10.0 L Hct 32.6 L MCV 86.7 MCH 26.6 MCHC 30.7 L RDW 15.4 H Plt Count 266 MPV 11.1 H Sodium 134 L Potassium 3.5 Chloride 106 Carbon Dioxide 23 Anion Gap 5 BUN 8 Creatinine 0.64 L Estim Creat Clear Calc 105 Estimated GFR > 60 Glucose 83 Calcium 8.2 L
[2025-04-09 14:00] VITALS: BP 145/80; PULSE 81; RESP 18; TEMP 37.1; O2SAT 100
[2025-04-09] MEDS: MORPHINE SULFATE (*CRX) 4 MG/ML INJ IV PUSH (15:50)
[2025-04-09] MEDS: ACETAMINOPHEN 325 MG TABLET 650 MG PO (17:57)
[2025-04-09] MEDS: SIMETHICONE 125 MG CHEW TAB PO ×2 (17:58→21:20)
[2025-04-09] MEDS: PANTOPRAZOLE 40 MG TABLET PO (21:20)
[2025-04-09 22:00] VITALS: BP 147/81; PULSE 80; RESP 12; TEMP 35.7; O2SAT 100
[2025-04-09 22:02] VITALS: O2SAT 100
[2025-04-10] MEDS: ONDANSETRON INJ 4 MG/2 ML VIAL IV PUSH ×3 (02:39→17:02)
[2025-04-10 05:53] VITALS: BP 150/90; PULSE 75; RESP 12; TEMP 36.2; O2SAT 98
[2025-04-10 05:58] LABS: Hematocrit 33.7 % (37.0-47.0); Hemoglobin 10.6 g/dL (12.0-15.0); Mean Corpuscular HGB Conc 31.5 g/dl (32-36); Mean Corpuscular Hemoglobin 26.8 pg (26-34); Mean Corpuscular Volume 85.3 fl (80-100); Platelet Count Result 281 k/mm3 (150-375); Red Blood Count 3.95 M/mm3 (4.2-5.4); White Blood Count 8.6 K/mm3 (4.5-10.0)
[2025-04-10 06:21] LABS: Anion Gap 11 mmol/L (4-12); Blood Urea Nitrogen 5 mg/dL (7-17); Calcium 8.2 mg/dL (8.4-10.2); Carbon Dioxide 21 mmol/L (22-30); Chloride 102 mmol/L (98-107); Estimated CRCL calculation 111 ml/min; Estimated Glomerular Filt Rate > 60; Glucose 77 mg/dL (65-110); Potassium 3.5 mmol/L (3.4-5.0); Sodium 134 mmol/L (137-145)
[2025-04-10 08:00] VITALS: PULSE 75; RESP 12; O2SAT 98
[2025-04-10] MEDS: ESCITALOPRAM OXALATE 10 MG TABLET PO (08:41)
[2025-04-10] MEDS: SIMETHICONE 125 MG CHEW TAB PO ×3 (08:41→20:29)
[2025-04-10] MEDS: HYDROcodone/acetaminophen (*CRX) 5-325 MG TABLET 1 TAB PO (08:41)
[2025-04-10] MEDS: LACTATED RINGERS 1,000 ML 100 ML IV CONT ×2 (09:35→20:28)
[2025-04-10] MEDS: ENOXAPARIN 40 MG/0.4 ML SYRINGE SUB-Q (10:55)
[2025-04-10] MEDS: ACETAMINOPHEN 325 MG TABLET 650 MG PO ×2 (12:01→17:01)
[2025-04-10 15:41] VITALS: BP 149/87; PULSE 74; RESP 18; TEMP 36.9; O2SAT 99
--- NOTE | 2025-04-10 15:54 | P.PNGS_ITS ---
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 Still had episode of emesis this morning. Was able to keep some food down for lunch, but feeling nauseous again in the afternoon. Patient states that she overall feels better than she did ye sterday. Having regular bowel movements now. * Continue antiemetics. Diet advanced. Will continue to follow with serial abdominal exams and labs. * Pathology showed no residual adenocarcinoma, 18 reactive lymph nodes Plan I have discussed the patient's case and plan of care with Dr. Becker. Subjective Subjective Date/Time Seen: 04/10/25 15:54 Patient reports: bowel movement, nausea and afebrile Interval history: Patient still having some nausea. She had an episode of emesis this morning, but was able to keep down some crackers and a few bites of an apple. When visited this afternoon, she states that she is feeling nauseous again. She is still having some lower abdominal pain exacerbated by movement. Having regular bowel movements. Exam Const: General: comfortable and no acute distress GI: Inspection: non-distended, incision (dry and glue intact) and no visible herniation GI Palp: Yes Soft to palpation and Yes Tenderness to palpation present (GI) (minimal tenderness to lower abdomen) Auscultation: normal bowel sounds Objective Data Vital Signs Vital Signs: Vital Signs - 24 hr 04/09/25 22:00 04/09/25 22:02 04/10/25 05:53 Temperature 96.3 F L 97.2 F L Pulse Rate 80 75 Respiratory Rate 12 12 Blood Pressure 147/81 H 150/90 H Pulse Oximetry 100 100 98 Oxygen Delivery Room Air 04/10/25 08:00 04/10/25 15:41 Temperature 98.4 F Pulse Rate 75 74 Respiratory Rate 12 18 Blood Pressure 149/87 H Pulse Oximetry 98 99 Oxygen Delivery Room Air Intake/Output Intake/Output: Intake & Output 04/07/25 04/08/25 04/09/25 04/10/25 23:59 23:59 23:59 23:59 Intake Total 700 2480 2880.0 2480 Output Total 600 Balance 700 2480 2280.0 2480 Meds/Results Medications: Active Medications Generic Name Dose Route Start Last Admin Trade Name Freq PRN Reason Stop Dose Admin Acetaminophen 650 mg 04/08/25 18:00 04/10/25 12:01 Acetaminophen 325 Mg Tablet PO 650 mg Q6HR JENN Administration Hydrocodone Bitart/Acetaminophen 1 tab 04/08/25 13:16 04/10/25 08:41 Hydrocodone/Acetaminophen (*Crx) 5-325 Mg Tablet PO 1 tab Q4H PRN Administration Pain Rated 4-6 Hydrocodone Bitart/Acetaminophen 1 tab 04/08/25 13:16 Hydrocodone/Acetaminophen (*Crx) 10-325 Mg Tablet PO Q6H PRN Pain Rated 7-10 Buspirone HCl 5 mg 04/07/25 17:00 04/10/25 08:41 Buspirone Hcl 5 Mg Tablet PO 5 mg BID JENN Administration Diphenhydramine HCl 25 mg 04/09/25 12:44 04/10/25 15:47 Diphenhydramine Hcl Inj 50 Mg/Ml Vial IV PUSH 25 mg Q4H PRN Administration Nausea And Vomiting Enoxaparin Sodium 40 mg 04/08/25 09:00 04/10/25 10:55 Enoxaparin 40 Mg/0.4 Ml Syringe SUB-Q 40 mg DAILY JENN Administration Escitalopram Oxalate 10 mg 04/08/25 09:00 04/10/25 08:41 Escitalopram Oxalate 10 Mg Tablet PO 10 mg DAILY JENN Administration Lactated Ringer's 1,000 mls @ 100 mls/hr 04/07/25 13:10 04/10/25 09:35 Lr - Lactated Ringers Iv IV CONT 100 mls/hr .Q10H JENN Administration Morphine Sulfate 2 mg 04/07/25 13:18 04/07/25 17:44 Morphine Sulfate (*Crx) 4 Mg/Ml Inj IV PUSH 2 mg Q2H PRN Administration Breakthrough Pain Rated 4-6 or NPO Morphine Sulfate 4 mg 04/07/25 13:10 04/09/25 15:50 Morphine Sulfate (*Crx) 4 Mg/Ml Inj IV PUSH 4 mg Q2H PRN Administration Breakthrough Pain Rated 7-10 or NPO Naloxone HCl 0.1 mg 04/07/25 13:10 Naloxone Hcl 0.4 Mg/Ml Vial IV PUSH Q2M PRN Opiate Reversal Ondansetron HCl 4 mg 04/08/25 13:08 04/10/25 11:16 Ondansetron Inj 4 Mg/2 Ml Vial IV PUSH 4 mg Q6H PRN Administration Nausea And Vomiting Pantoprazole Sodium 40 mg 04/07/25 21:00 04/09/25 21:20 Pantoprazole 40 Mg Tablet PO 40 mg HS JENN Administration Simethicone 125 mg 04/09/25 17:00 04/10/25 12:01 Simethicone 125 Mg Chew Tab PO 125 mg QID JENN Administration Radiology Results: ITS Impressions Abdomen X-Ray 04/09/25 13:15 Impression: 1: Probable postoperative adynamic ileus. Recommend follow-up x-ray to assess for resolution. Labs Labs: Laboratory Results - last 24 hr 04/10/25 05:43 WBC 8.6 RBC 3.95 L Hgb 10.6 L Hct 33.7 L MCV 85.3 MCH 26.8 MCHC 31.5 L RDW 15.1 H Plt Count 281 MPV 10.6 H Sodium 134 L Potassium 3.5 Chloride 102 Carbon Dioxide 21 L Anion Gap 11 BUN 5 L Creatinine 0.60 L Estim Creat Clear Calc 111 Estimated GFR > 60 Glucose 77 Calcium 8.2 L
[2025-04-10] MEDS: PANTOPRAZOLE 40 MG TABLET PO (20:28)
[2025-04-10 22:47] VITALS: BP 134/79; PULSE 74; RESP 16; TEMP 36.7; O2SAT 100
[2025-04-11 04:55] VITALS: BP 144/91; PULSE 77; RESP 16; TEMP 36.3; O2SAT 100
[2025-04-11] MEDS: HYDROcodone/acetaminophen (*CRX) 10-325 MG TABLET 1 TAB PO (05:24)
[2025-04-11] MEDS: LACTATED RINGERS 1,000 ML 100 ML IV CONT (05:26)
[2025-04-11 06:52] LABS: Hematocrit 34.7 % (37.0-47.0); Hemoglobin 10.9 g/dL (12.0-15.0); Mean Corpuscular HGB Conc 31.4 g/dl (32-36); Mean Corpuscular Hemoglobin 26.8 pg (26-34); Mean Corpuscular Volume 85.3 fl (80-100); Platelet Count Result 287 k/mm3 (150-375); Red Blood Count 4.07 M/mm3 (4.2-5.4); White Blood Count 8.5 K/mm3 (4.5-10.0)
[2025-04-11 07:14] LABS: Anion Gap 11 mmol/L (4-12); Blood Urea Nitrogen 3 mg/dL (7-17); Calcium 8.3 mg/dL (8.4-10.2); Carbon Dioxide 21 mmol/L (22-30); Chloride 102 mmol/L (98-107); Estimated CRCL calculation 120 ml/min; Estimated Glomerular Filt Rate > 60; Glucose 73 mg/dL (65-110); Potassium 3.0 mmol/L (3.4-5.0); Sodium 134 mmol/L (137-145)
[2025-04-11] MEDS: SIMETHICONE 125 MG CHEW TAB PO ×4 (09:08→21:04)
[2025-04-11] MEDS: ONDANSETRON INJ 4 MG/2 ML VIAL IV PUSH ×2 (09:09→16:59)
[2025-04-11] MEDS: ESCITALOPRAM OXALATE 10 MG TABLET PO (09:09)
[2025-04-11] MEDS: ENOXAPARIN 40 MG/0.4 ML SYRINGE SUB-Q (09:09)
[2025-04-11] MEDS: HYDROcodone/acetaminophen (*CRX) 5-325 MG TABLET 1 TAB PO (10:41)
[2025-04-11] MEDS: ACETAMINOPHEN 325 MG TABLET 650 MG PO ×2 (12:01→16:59)
[2025-04-11] MEDS: POTASSIUM CHLORIDE 20 MEQ ER TABLET PO (12:02)
--- NOTE | 2025-04-11 12:13 | P.PNGS_ITS ---
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 Postoperative nausea appears to be resolving. Continue advancing diet. * Possibly home tomorrow. (2) Hypokalemia: Code(s): E87.6 - Hypokalemia Status: Acute Assessment and Plan: * Will repeat labs in a.m. * Potassium replaced today Subjective Subjective Date/Time Seen: 04/11/25 12:13 Interval history: Nausea improving. Was able to have biscuits and gravy this morning without any vomiting. Bowels moving. Pain mostly incisional in the lower abdomen. Exam GI: Inspection: incision (Intact with glue, mild ecchymosis) GI Palp: Yes Soft to palpation, Yes Tenderness to palpation present (GI) (Lower incisional), No Guarding due to palpation present (GI) and No Rebound tenderness present Auscultation: normal bowel sounds Objective Data Vital Signs Vital Signs: Vital Signs - 24 hr 04/10/25 15:41 04/10/25 22:47 04/11/25 04:55 Temperature 98.4 F 98.0 F 97.3 F L Pulse Rate 74 74 77 Respiratory Rate 18 16 16 Blood Pressure 149/87 H 134/79 144/91 H Pulse Oximetry 99 100 100 Intake/Output Intake/Output: Intake & Output 04/08/25 04/09/25 04/10/25 04/11/25 23:59 23:59 23:59 23:59 Intake Total 2480 2880.0 4200 1486.7 Output Total 600 Balance 2480 2280.0 4200 1486.7 Meds/Results Medications: Active Medications Generic Name Dose Route Start Last Admin Trade Name Freq PRN Reason Stop Dose Admin Acetaminophen 650 mg 04/08/25 18:00 04/11/25 12:01 Acetaminophen 325 Mg Tablet PO 650 mg Q6HR JENN Administration Hydrocodone Bitart/Acetaminophen 1 tab 04/08/25 13:16 04/11/25 10:41 Hydrocodone/Acetaminophen (*Crx) 5-325 Mg Tablet PO 1 tab Q4H PRN Administration Pain Rated 4-6 Hydrocodone Bitart/Acetaminophen 1 tab 04/08/25 13:16 04/11/25 05:24 Hydrocodone/Acetaminophen (*Crx) 10-325 Mg Tablet PO 1 tab Q6H PRN Administration Pain Rated 7-10 Buspirone HCl 5 mg 04/07/25 17:00 04/11/25 09:09 Buspirone Hcl 5 Mg Tablet PO 5 mg BID JENN Administration Diphenhydramine HCl 25 mg 04/09/25 12:44 04/10/25 20:28 Diphenhydramine Hcl Inj 50 Mg/Ml Vial IV PUSH 25 mg Q4H PRN Administration Nausea And Vomiting Enoxaparin Sodium 40 mg 04/08/25 09:00 04/11/25 09:09 Enoxaparin 40 Mg/0.4 Ml Syringe SUB-Q 40 mg DAILY JENN Administration Escitalopram Oxalate 10 mg 04/08/25 09:00 04/11/25 09:09 Escitalopram Oxalate 10 Mg Tablet PO 10 mg DAILY JENN Administration Morphine Sulfate 2 mg 04/07/25 13:18 04/07/25 17:44 Morphine Sulfate (*Crx) 4 Mg/Ml Inj IV PUSH 2 mg Q2H PRN Administration Breakthrough Pain Rated 4-6 or NPO Morphine Sulfate 4 mg 04/07/25 13:10 04/09/25 15:50 Morphine Sulfate (*Crx) 4 Mg/Ml Inj IV PUSH 4 mg Q2H PRN Administration Breakthrough Pain Rated 7-10 or NPO Naloxone HCl 0.1 mg 04/07/25 13:10 Naloxone Hcl 0.4 Mg/Ml Vial IV PUSH Q2M PRN Opiate Reversal Ondansetron HCl 4 mg 04/08/25 13:08 04/11/25 09:09 Ondansetron Inj 4 Mg/2 Ml Vial IV PUSH 4 mg Q6H PRN Administration Nausea And Vomiting Pantoprazole Sodium 40 mg 04/07/25 21:00 04/10/25 20:28 Pantoprazole 40 Mg Tablet PO 40 mg HS JENN Administration Simethicone 125 mg 04/09/25 17:00 04/11/25 12:02 Simethicone 125 Mg Chew Tab PO 125 mg QID JENN Administration Radiology Results: ITS Impressions Abdomen X-Ray 04/09/25 13:15 Impression: 1: Probable postoperative adynamic ileus. Recommend follow-up x-ray to assess for resolution. Labs Labs: Laboratory Results - last 24 hr 04/11/25 05:56 WBC 8.5 RBC 4.07 L Hgb 10.9 L Hct 34.7 L MCV 85.3 MCH 26.8 MCHC 31.4 L RDW 14.9 H Plt Count 287 MPV 11.1 H Sodium 134 L Potassium 3.0 L Chloride 102 Carbon Dioxide 21 L Anion Gap 11 BUN 3 L Creatinine 0.55 L Estim Creat Clear Calc 120 Estimated GFR > 60 Glucose 73 Calcium 8.3 L
[2025-04-11 14:00] VITALS: BP 155/93; PULSE 76; RESP 20; TEMP 37.2; O2SAT 100
[2025-04-11 20:25] VITALS: BP 154/91; PULSE 73; RESP 16; TEMP 36.7; O2SAT 98
[2025-04-11] MEDS: PANTOPRAZOLE 40 MG TABLET PO (21:04)
--- NOTE | 2025-04-11 22:41 | PC.NURSE ---
patient lost IV access, which was us placed. Patient does not wish another IV at this time, r/t possible discharge tomorrow. Provider Rola notified with new order for po Hydrocodone q four hours given.
[2025-04-12 05:05] VITALS: BP 138/99; PULSE 90; RESP 16; TEMP 36; O2SAT 100
[2025-04-12 06:13] LABS: Hematocrit 37.5 % (37.0-47.0); Hemoglobin 11.8 g/dL (12.0-15.0); Mean Corpuscular HGB Conc 31.5 g/dl (32-36); Mean Corpuscular Hemoglobin 26.6 pg (26-34); Mean Corpuscular Volume 84.5 fl (80-100); Platelet Count Result 330 k/mm3 (150-375); Red Blood Count 4.44 M/mm3 (4.2-5.4); White Blood Count 6.8 K/mm3 (4.5-10.0)
[2025-04-12 06:38] LABS: Anion Gap 10 mmol/L (4-12); Blood Urea Nitrogen 3 mg/dL (7-17); Calcium 8.7 mg/dL (8.4-10.2); Carbon Dioxide 25 mmol/L (22-30); Chloride 100 mmol/L (98-107); Estimated CRCL calculation 108 ml/min; Estimated Glomerular Filt Rate > 60; Glucose 89 mg/dL (65-110); Potassium 2.9 mmol/L (3.4-5.0); Sodium 135 mmol/L (137-145)
[2025-04-12] MEDS: POTASSIUM CHLORIDE 20 MEQ ER TABLET 40 MEQ PO (08:47)
[2025-04-12] MEDS: ESCITALOPRAM OXALATE 10 MG TABLET PO (08:47)
--- NOTE | 2025-04-12 10:16 | PC.NURSE ---
Pt had called for pain meds while I was with another pt and became upset that nobody was able to get into room in what she felt was a timely manor. Pt was wanting to leave without DC being in place. I apologized to patient who was very visibly upset and let her know I had her meds and that her potassium is very low. Pt still insisted she wanted to leave. I called the provider Dr. Becker to inform him patient was wanting to leave AMA. He asked that I have to warehouse order filler or charge nurse go in and speak to patient. I went back and informed patient how important that it is that she take the potassium and that we make sure she is okay. Charge nurse Iván also came to room. Patient refused to take her simethicone and pain meds. I informed patient about how important taking the simethicone was to reduce the burping an gas that causes the nausea. Patient still refused said she has gone all this time without anything. Pt also stated she did not take any pain meds for over 12 hours even refused her scheduled acetaminophen at 0600. Which is why she became so upset because she felt like we were not making her a priority about her pain.
--- NOTE | 2025-04-12 11:16 | PM.DS ---
DS: Admitting Diagnosis Discharge Date 04/12/2025 Admitting Diagnosis transverse colon adenocarcinoma DS: Discharge Diagnosis Discharge Diagnosis (1) Malignant neoplasm of transverse colon: Code(s): C18.4 - Malignant neoplasm of transverse colon Status: Acute (2) Hypokalemia: Code(s): E87.6 - Hypokalemia Status: Acute (3) Postoperative nausea and vomiting: Code(s): R11.2 - Nausea with vomiting, unspecified; Z98.890 - Other specified postprocedural states Status: Acute DS: Summary Hospital Course Reason for hospitalization: transverse colon adenocarcinoma Hospital Course: This is a 44-year-old woman who presented for colon resection on 04/07/2025. She had undergone colonoscopy of 02/09/2025 and was found to have a large transverse colon polyp with evidence of adenocarcinoma. The tattooed region was identified near the splenic flexure at the time of surgery, therefore a robotic assisted laparoscopic left hemicolectomy with anastomosis was performed on 02/04/2025. Postoperatively patient was experiencing significant nausea and vomiting. Phenergan was not helping very much and Zofran was also added to her regimen. She was then also given a scopolamine patch to help with the nausea and vomiting. She was kept on a liquid diet initially but this took several days before nausea began improving. She was remaining hemodynamically stable pain was well controlled. On postop day 3 her diet was started to be advanced towards a low-fiber diet. She did have some hypokalemia likely due to the bowel prep and nausea and vomiting. This was replaced with IV and p.o. potassium. On postop day 5 she was tolerating a solid diet and was not having any significant nausea or vomiting. Her potassium was still low and she was given potassium chloride 40 mEq on day of discharge. BMP was ordered to be performed 3 days after discharge. Her pathology came back as no residual cancer within the segment of colon removed. No positive lymph nodes. She was discharged home on 04/12/2025. Status at Discharge Functional status at discharge: independent ambulation Overall status at discharge: patient is progressing back to baseline Time Spent with Patient Time attestation: Total time spent providing and/or coordinating discharge services: Time spent: Less than 30 minutes Exam Const: General: comfortable and no acute distress Orientation/consciousness: patient oriented x3 Resp: Effort & Inspection: normal respiratory effort Auscultation: clear to auscultation bilaterally Cardio: Rate: regular rate Rhythm: regular rhythm Heart sounds: S1 normal heart sound present and S2 normal heart sound present GI: Inspection: incision ( Intact with glue, mild ecchymosis at low Pfannenstiel incision) GI Palp: Yes Soft to palpation, No Tenderness to palpation present (GI), No Guarding due to palpation present (GI) and No Rebound tenderness present Auscultation: normal bowel sounds DS: Data Data Completed and Pending Completed studies during hospitalization: Pending at discharge 04/07/25 10:19 Surgical [PTH] Routine Final Diagnosis Transverse colon, segmental colectomy: - Colon with benign colonic mucosa unremarkable submucosa and muscularis - Focal area of tattooing observed within the tissue consistent with previous polyp biopsy site. - No residual carcinoma identified. - 18 reactive mesenteric lymph nodes noted. Reviewed and Electronically Signed by: Librado Matson MD 04/08/25 1100 Labs on day of discharge: Labs from last 24 hours 04/12/25 05:56 WBC 6.8 RBC 4.44 Hgb 11.8 L Hct 37.5 MCV 84.5 MCH 26.6 MCHC 31.5 L RDW 14.8 H Plt Count 330 MPV 10.9 H Sodium 135 L Potassium 2.9 L Chloride 100 Carbon Dioxide 25 Anion Gap 10 BUN 3 L Creatinine 0.62 L Estim Creat Clear Calc 108 Estimated GFR > 60 Glucose 89 Calcium 8.7 Imaging Radiologist's impression: ITS Impressions Abdomen X-Ray 04/09/25 13:15 Impression: 1: Probable postoperative adynamic ileus. Recommend follow-up x-ray to assess for resolution. Discharge Plan Discharge Attending physician on discharge: Jameel Alfred Discharging Clinician: Jameel Alfred Patient Disposition: Home Activity: other - see discharge instructions Diet: low fiber Wound Care Instructions: other - see discharge instructions Discharge Instructions: DISCHARGE INSTRUCTION SHEET FOR DR. ALFRED PATIENT TO TAKE HOME 1. May shower, no soaking in bath x 2weeks. 2. Call office for: Wound increasingly painful or bleeding Vomiting Fever of greater than 101 degrees 3. If no bowel movement for three days, take 1 oz. (30 ml) Milk of Magnesia or MiraLax 17g 1 to 2 times daily. 4. No heavy lifting > 10-15 pounds x 4 weeks 5. No driving for 2 more days or while taking narcotic pain medications. 6. Ice to surgical site for 48 hours (30 min on, then 30 min off). 7. Up walking 10-30 minutes three times per day. 8. Resume previous home medications. 9. Follow-up 10-14 days in office for wound check or as previously scheduled. ([phone]) 10. Oral pain medications prescription to be sent to pharmacy. 11. NUTRITION: Low fiber diet for 1 more week, then may resume regular diet. If you experience nausea, try dry toast, crackers, and 7-UP. If nausea or vomiting persists, contact your surgeon?s office. 12. Order placed for BMP blood test to be done Sunday. No fasting necessary. Come to [facility] Main Entrance and check in at registration. Blood will be drawn and results will be discussed at follow up appointment. Revised November 2018 Patient Instructions: Antibiotic Form, Low Fiber Diet (DC) Patient Language: Icelandic Stand Alone Forms: General Discharge Information Follow-up/Referrals: Jameel Alfred DO [Physician, General Surgery] - 04/17/25 8:15 am Discharge Medications: New hydrocodone-acetaminophen 5-325 mg tablet 1 tablet PO Q4H PRN (Reason: pain) Qty: 10 0RF ondansetron 4 mg tablet,disintegrating 4 mg PO Q6H PRN (Reason: nausea and vomiting) Qty: 5 0RF Continued acetaminophen [Tylenol] 325 mg tablet 325 mg PO .PRN PRN (Reason: fever or pain) escitalopram oxalate [Lexapro] 10 mg tablet 10 mg PO DAILY Qty: 30 2RF Patient Comments: takes at hs pantoprazole 40 mg tablet,delayed release (DR/EC) 40 mg PO HS Qty: 30 3RF buspirone 5 mg tablet 5 mg PO BID Qty: 180 0RF Discontinued metronidazole 500 mg tablet 500 mg PO .COMPLEX Qty: 3 0RF Rx Instructions: 500 mg orally at 1:00pm, 2:00pm, and 11:00pm the day before surgery; ciprofloxacin HCl 500 mg tablet 500 mg PO .COMPLEX Qty: 1 0RF Rx Instructions: 500 mg orally at 2:00pm the day before surgery; Other Ambulatory Orders: Basic Metabolic Panel (Routine) Timeframe: 3 Days Facility: [facility] - Location: [facility] Laboratory Ordered By: Jameel Alfred Date of admission: 04/07/25 13:10 Primary Care Provider: Phylicia Ivan Admitting Provider: Jameel Alfred Attending physician on admission: Jameel Alfred Condition: Improved
[2025-04-12] MEDS: SIMETHICONE 125 MG CHEW TAB PO (11:30)
[2025-04-12] MEDS: ACETAMINOPHEN 325 MG TABLET 650 MG PO (11:30)
== END 2025-04-12 11:45 | disposition home or self-care (01) | DRG 331 ==
LOC: ANH3MEDSUR 04-08 10:51
PROVIDERS: Admitting Provider Surgery; PCP Family Medicine; Visit Provider Surgery
PROC: 0DTF4ZZ Resection of Right Large Intestine, Percutaneous Endoscopic Approach (ICD-10-PCS; principal; 2025-04-07 07:30)
DX: C18.4 Malignant neoplasm of transverse colon (principal); E87.6 Hypokalemia; J44.9 Chronic obstructive pulmonary disease, unspecified; F41.9 Anxiety disorder, unspecified; M19.90 Unspecified osteoarthritis, unspecified site; K91.0 Vomiting following gastrointestinal surgery; Z98.890 Other specified postprocedural states; Z87.891 Personal history of nicotine dependence
CPT/HCPCS: 36415; 74018; 80048; 82948; 85027; 88309; J0690; A9270; J1100; J1171; J1200; J1650; J1836; J1885; J2003; J2250; J2270; J2405; J2550; J2704; J3010; J3480; J7030; J7040; J7120

== ENCOUNTER 2025-04-15 13:55 | Outpatient (CLI) | payer OTHER, SELFPAY ==
[2025-04-15 15:03] LABS: Anion Gap 8 mmol/L (4-12); Blood Urea Nitrogen 5 mg/dL (7-17); Calcium 8.8 mg/dL (8.4-10.2); Carbon Dioxide 28 mmol/L (22-30); Chloride 101 mmol/L (98-107); Estimated Glomerular Filt Rate > 60; Glucose 137 mg/dL (65-110); Potassium 2.7 mmol/L (3.4-5.0); Sodium 137 mmol/L (137-145)
== END 2025-04-15 13:56 | disposition home or self-care (01) ==
LOC: ANHLAB 13:57
PROVIDERS: PCP Family Medicine; Visit Provider Surgery
DX: E87.6 Hypokalemia (principal)
CPT/HCPCS: 36415; 80048

== ENCOUNTER 2025-05-15 09:27 | Outpatient (CLI) | payer OTHER, SELFPAY ==
[2025-05-15 11:00] LABS: Anion Gap 6 mmol/L (4-12); Blood Urea Nitrogen 6 mg/dL (7-17); Calcium 8.8 mg/dL (8.4-10.2); Carbon Dioxide 25 mmol/L (22-30); Chloride 104 mmol/L (98-107); Estimated Glomerular Filt Rate > 60; Glucose 90 mg/dL (65-110); Magnesium 2.2 mg/dL (1.6-2.3); Potassium 3.7 mmol/L (3.4-5.0); Sodium 135 mmol/L (137-145)
== END 2025-05-15 09:28 | disposition home or self-care (01) ==
LOC: ANHLAB 09:28
PROVIDERS: PCP Family Medicine; Visit Provider Surgery
DX: E87.6 Hypokalemia (principal)
CPT/HCPCS: 36415; 80048; 83735

== ENCOUNTER 2025-06-23 03:27 | Day surgery (SDC) | payer OTHER, SELFPAY ==
[2025-06-02 08:12] VITALS: BMI 31.6
[2025-06-23 12:43] VITALS: BP 142/77; PULSE 72; RESP 18; TEMP 36.1; O2SAT 100; BMI 31.4
[2025-06-23 12:46] LABS: BEDSIDEPREGUCG Negative (Negative)
[2025-06-23] MEDS: LACTATED RINGERS 1,000 ML 150 ML IV CONT (12:51)
--- NOTE | 2025-06-23 13:21 | P.PNAN_ITS ---
Anes - Initial Pre Proc Eval Procedure: Operation Date: 06/23/25 14:00 Proposed Procedures p Esophagogastroduodenoscopy EGD - Jose Zhang MD Date/Time: 06/23/25 13:21 Surgeon: Jose Zhang MD Pre Op Diagnosis: nausea with vomiting Patient Data Age: 45 Gender: F Height: 1.65 m Weight: 85.5 kg Last Vital Signs Temp 36.1 C L 06/23/25 12:43 Pulse 72 06/23/25 12:43 Resp 18 06/23/25 12:43 BP 142/77 H 06/23/25 12:43 Pulse Ox 100 06/23/25 12:43 O2 Del Method Room Air 06/23/25 12:43 Allergies Allergy/AdvReac Type Severity Reaction Status Date / Time nicotine Allergy Intermediate Rash Verified 06/02/25 08:10 Nicotine patch AdvReac Intermediate Rash Uncoded 06/23/25 12:41 Home Medications ?Medication ?Instructions ?Recorded ?Confirmed ?Type escitalopram oxalate 10 mg tablet 10 mg PO DAILY #90 t abs 04/26/25 06/23/25 Rx (Lexapro) buspirone 5 mg tablet 5 mg PO BID #180 tabs 06/23/25 Rx Laboratory Tests 06/23/25 12:43 POC Urine HCG, Qual Negative (Negative) Patient hx anesthesia problems: none Family hx anesthesia problems: none Results Review: All pre-operative results and documents have been reviewed as part of the pre- operative evaluation. [facility] Past Medical History Medical History COPD (chronic obstructive pulmonary disease) Asthma Anxiety Colon cancer Arthritis Surgical History Surgical History Hx of colectomy S/P LAP TRANSVERSE COLECTOMY FANGINCI ASST 04/07 Dr. Becker Family History Family History Grandparent Diabetes mellitus Mother Family history of hypercholesterolemia Carcinoma of colon Hypertension Depression Anxiety Heart disease Father Hypertension Cerebrovascular accident Sibling Alcoholism Hypertension Depression Anxiety Heart disease Sibling Anxiety Depression Grandparent Carcinoma of colon Heart disease Social History Social History Smoking packs per day: 1 Smoking cigarettes per day: 20.0 Years smoked: 20 Smoking pack-years: 20.00 Smoking status: Former smoker Smoking end date: 05/16/23 Additional smoking assessment comments: Smokes THC daily Alcohol intake: never Substance use: current Substance use type: marijuana Last use: 04/06/25 Lack of Transportation: No Lack of Food: Sometimes True Current Housing: I Have Housing Concerned About Future Housing: No Difficulty Paying Gas/Electric Bills: No Difficulty Paying for Meds: No Currently Unemployed: No Education: Bachelor's Degree Difficulty w/ Childcare or Family Care: No Living arrangements: with family Spiritual care concerns: No Anes - Eval Final PreProcedure Day of Procedure 06/23/25 13:21 Patient weight: obese Heart: regular rate and rhythm Lungs: clear to auscultation Airway: Mallampati scale class II Neurological: alert and oriented Last oral intake: >/= 8 hours ASA classification: III Emergent: no Anesthetic plan: proceed Anesthesia type and monitoring: general GIVS and standard monitoring Results Review: All pre-operative results and documents have been reviewed as part of the pre- operative evaluation. Informed Consent: The patient's anesthetic plan and its attendant risks and benefits were discussed with the patient/family/POA. Questions were solicited and answers provided to the satisfaction of the patient/family/POA.
--- NOTE | 2025-06-23 13:34 | PM.HPGS ---
History of Present Illness History of Present Illness Consent: Risks, benefits, and alternatives have been discussed and questions answered. Patient agrees to proceed with procedure. Chief complaint: nausea with vomiting Narrative: Elma Colunga is a 45 year old female here for first egd, burping for months better on ppi Review of Systems Review of Systems: All systems reviewed & are unremarkable except as noted in HPI and below PMFSH Past Medical History Medical History COPD (chronic obstructive pulmonary disease) Asthma Anxiety Colon cancer Arthritis Surgical History Surgical History Hx of colectomy S/P LAP TRANSVERSE COLECTOMY DAVINCI ASST 04/07 Dr. Becker Family History Family History Grandparent Diabetes mellitus Mother Family history of hypercholesterolemia Carcinoma of colon Hypertension Depression Anxiety Heart disease Father Hypertension Cerebrovascular accident Sibling Alcoholism Hypertension Depression Anxiety Heart disease Sibling Anxiety Depression Grandparent Carcinoma of colon Heart disease Social History Social History Smoking packs per day: 1 Smoking cigarettes per day: 20.0 Years smoked: 20 Smoking pack-years: 20.00 Smoking status: Former smoker Smoking end date: 05/16/23 Additional smoking assessment comments: Smokes THC daily Alcohol intake: never Substance use: current Substance use type: marijuana Last use: 04/06/25 Lack of Transportation: No Lack of Food: Sometimes True Current Housing: I Have Housing Concerned About Future Housing: No Difficulty Paying Gas/Electric Bills: No Difficulty Paying for Meds: No Currently Unemployed: No Education: Bachelor's Degree Difficulty w/ Childcare or Family Care: No Living arrangements: with family Spiritual care concerns: No Meds Home Medications and Allergies Home Medications ?Medication ?Instructions ?Recorded ?Confirmed ?Type escitalopram oxalate 10 mg tablet 10 mg PO DAILY #90 tabs 04/26/25 06/23/25 Rx (Lexapro) buspirone 5 mg tablet 5 mg PO BID #180 tabs 05/31/25 06/23/25 Rx Allergies Allergy/AdvReac Type Severity Reaction Status Date / Time nicotine Allergy Intermediate Rash Verified 06/02/25 08:10 Nicotine patch AdvReac Intermediate Rash Uncoded 06/23/25 12:41 Vital Signs Vital Signs - 24 hr 06/23/25 12:43 Temperature 97 F L Pulse Rate 72 Respiratory Rate 18 Blood Pressure 142/77 H Pulse Oximetry 100 Oxygen Delivery Room Air Exam Const: General: comfortable and no acute distress HENMT: Face/Nose/Sinus: Normal nares present Eyes: General: appearance normal, both eyes and all related structures Neck: Neck: no JVD Resp: Auscultation: clear to auscultation bilaterally Cardio: Rate: regular rate Rhythm: regular rhythm GI: Inspection: non-distended GI Palp: Yes Soft to palpation Skin: General skin exam: normal color Extrem: General: normal to inspection Psych: Mental Status: mental status grossly normal Assessment and Plan Assessment and plan (1) Belching: Code(s): R14.2 - Eructation Status: Acute Assessment and Plan: egd with bx
--- NOTE | 2025-06-23 13:41 | S_PTH ---
PATIENT: Elma Colunga LOC: [facility]#:[id number] AGE/SX: 45/F ROOM: RE06/23/[address]: Jose Zhang MD : 1980 BED: DIS: 06/23/2025 SPEC #: [id number] RECD: 06/23/25 14:43 STATUS: BLESSING REQ #: [id number] REINIER: 06/23/25 13:[address]: Jose Zhang DEPT: [facility] Surgical RECD BY: Esperanza Limon MLT, ([facility]) ENTERED: 06/23/25 14:44 SP TYPE: Surgical OTHR DR: Phylicia Ivan DO Tissues: A - Gastric Biopsy B - Esophageal Biopsy Procedures: Hematoxylin and Eosin Stain Gross and Microscopic Level 4
[2025-06-23 13:54] VITALS: BP 124/76; PULSE 85; RESP 25; O2SAT 100
[2025-06-23 14:04] VITALS: BP 130/80; PULSE 75; RESP 23; O2SAT 100
[2025-06-23 14:14] VITALS: BP 110/59; PULSE 70; RESP 18; O2SAT 100
== END 2025-06-23 14:13 | disposition home or self-care (01) ==
PROVIDERS: Anesthesiology; PCP Family Medicine; Referring Provider Nurse Practitioner; Visit Provider Internal Medicine Gastroenterology
PROC: 0DJ08ZZ Inspection of Upper Intestinal Tract, Via Natural or Artificial Opening Endoscopic (ICD-10-PCS; CPT 43239; principal; 2025-06-23 14:00)
DX: K21.00 Gastro-esophageal reflux disease with esophagitis, without bleeding (principal); J44.9 Chronic obstructive pulmonary disease, unspecified; F41.9 Anxiety disorder, unspecified; M19.90 Unspecified osteoarthritis, unspecified site; F12.90 Cannabis use, unspecified, uncomplicated; E66.9 Obesity, unspecified; Z68.31 Body mass index [BMI] 31.0-31.9, adult; Z98.890 Other specified postprocedural states; Z90.49 Acquired absence of other specified parts of digestive tract; Z87.891 Personal history of nicotine dependence; Z85.038 Personal history of other malignant neoplasm of large intestine; Z80.0 Family history of malignant neoplasm of digestive organs; Z82.49 Family history of ischemic heart disease and other diseases of the circulatory system
CPT/HCPCS: 43239; 88305; J2003; J2704; J7120